=== PATIENT | female | born 1940 | race Caucasian/White ===

== ENCOUNTER → 2016-10-27 | Outpatient (CLI) | payer OTHER | LOC: BHFA 10:00 | PROVIDERS: ATTEND Internal Medicine | DX: I67.9 Cerebrovascular disease, unspecified (principal) ==

== ENCOUNTER → 2017-06-29 | Outpatient (CLI) | payer OTHER | LOC: BHFA 10:30 | PROVIDERS: ATTEND Internal Medicine Cardiovascular Disease | DX: I48.91 Unspecified atrial fibrillation (principal) ==

== ENCOUNTER 2017-08-03 11:58 | Day surgery (SDC) | payer OTHER ==
[2017-08-03] MEDS ORDERED: LIDOCAINE 1% 300 MG/30 ML SDV ONE (12:15)
[2017-08-03] MEDS ORDERED: BENZOCAINE UNIT DOSE SPRAY HURRICAINE MM ONE ×2 (12:15→13:24)
[2017-08-03] MEDS ORDERED: LIDOCAINE 2% JELLY 5 ML TUBE ONE (12:15)
[2017-08-03] MEDS ORDERED: fentaNYL 100 MCG/2 ML INJ ONE (12:19)
[2017-08-03] MEDS ORDERED: MIDAZOLAM 2 MG/2 ML VIAL ONE (12:19)
[2017-08-03 13:00] VITALS: RESP 20; TEMP 97.9
[2017-08-03] MEDS ORDERED: LIDOCAINE 1% 2 ML INJ ID PRN (13:06)
[2017-08-03] MEDS ORDERED: NS 500 ML IV ONE (13:06)
[2017-08-03] MEDS ORDERED: fentaNYL 100 MCG/2 ML INJ IVP ONE (13:37)
[2017-08-03] MEDS ORDERED: MIDAZOLAM 2 MG/2 ML VIAL IVP ONE (13:37)
[2017-08-03 13:48] VITALS: PULSE 74
--- NOTE | 2017-08-03 14:04 | BVPULMO ---
[facility]- Pulmonology Patient Name: Audra Stickling Procedure Date: 08/03/2017 11:57 AM Patient Type: Outpatient Attending MD/ER Physician: Kennedy Mares MD Procedure: Bronchoscopy Indications: Nodule of lung Providers: Kennedy Mares MD Medicines: Lidocaine 1% applied to cords 2 mL, Lidocaine 1% applied to the tracheobronchia l tree 5 mL, Fentanyl 150 mcg IV, Midazolam 3 mg mg IV Complications: No immediate complications Procedure: After informed consent, a time out was performed. N95 masks were worn, and the procedure was done in a negative pressure room. The patient was given appropria te topical anesthesia and intravenous sedation. The fiberopic bronchoscope was pas sed via a bite block orally into the larynx and subsequently into the lower trachea bronchial tree. Throughout the procedure, the patient's blood pressure, pulse, and oxygen saturations were monitored continuously. The Bronchoscope (Video) was introduced through the mouth and advanced to the tracheobronchial tree of both lungs. The procedure was accomplished without difficulty. The patient tolerated the procedure well. Findings: Bilateral Lung Abnormalities: Scant, white, thick secretions were found through out the tracheobronchial tree. They were not obstructing the airway. Bronchoalveolar lavage was performed in the BATOOL apical posterior segments (B1 & B2) and in the BATOOL anterior segment (B3) of the lung and sent for routine cytology. 100 mL of fluid were instilled. 20 mL were returned. The return was cloudy. There w ere no mucoid plugs in the return fluid. Post Op Diagnosis: - Nodule of lung - Scant, white, thick secretions were found throughout the tracheobronchial kaylie e. - Bronchoalveolar lavage was performed of the BATOOL. Estimated Blood Loss: Estimated blood loss: none. Recommendation: - The patient will be observed post-procedure, until all discharge criteria are met. - Await BAL results. - Follow up with bronchoscopist in 3 weeks. - The patient was advised to call or return to the clinic if there are signs or symptoms suggesting a complication/adverse reaction from the procedure. Attending Participation: I was present and participated during the entire procedure, including non-bob portions. Kennedy Mares MD Kennedy Mares MD 08/03/2017 2:03:11 PM This report has been signed electronicallyThmickie Mares MD Number of Addenda: 0 Note Initiated On: 08/03/2017 11:57 AM [email or web address]
[2017-08-03 14:13] VITALS: BP 132/57; O2SAT 99
== END 2017-08-03 15:00 | disposition home or self-care (01) ==
LOC: FSGY 11:58
PROVIDERS: ATTEND Internal Medicine Critical Care Medicine
PROC: 0B988ZX Drainage of Left Upper Lobe Bronchus, Via Natural or Artificial Opening Endoscopic, Diagnostic (ICD-10-PCS; principal; 2017-08-03 13:00)
DX: R91.1 Solitary pulmonary nodule (principal); J44.9 Chronic obstructive pulmonary disease, unspecified; I50.32 Chronic diastolic (congestive) heart failure; I10 Essential (primary) hypertension; G47.33 Obstructive sleep apnea (adult) (pediatric); D68.2 Hereditary deficiency of other clotting factors; Z79.01 Long term (current) use of anticoagulants; Z86.711 Personal history of pulmonary embolism
CPT/HCPCS: J0171; J2250; J3010

== ENCOUNTER → 2017-08-29 | Outpatient (CLI) | payer OTHER | LOC: BHFA 10:00 | PROVIDERS: ATTEND Internal Medicine Cardiovascular Disease | DX: R06.02 Shortness of breath (principal) ==

== ENCOUNTER 2018-06-19 06:55 | Day surgery (SDC) | payer OTHER ==
[2018-06-19] MEDS ORDERED: NALOXONE HCL 0.4 MG/ML INJ IVP PRN (07:14)
[2018-06-19] MEDS ORDERED: FLUMAZENIL 0.5 MG/5 ML MDV IVP PRN (07:14)
[2018-06-19] MEDS ORDERED: fentaNYL 100 MCG/2 ML INJ IVP PRN (07:14)
[2018-06-19] MEDS ORDERED: MEPERIDINE 25 MG/ML SYR IVP PRN (07:14)
[2018-06-19] MEDS ORDERED: MIDAZOLAM 2 MG/2 ML VIAL IVP PRN (07:14)
[2018-06-19] MEDS ORDERED: NS 1,000 ML IV SCH (07:15)
[2018-06-19 08:25] LABS: INR 1.18 (0.83-1.16); PROTIME(PATIENT) 15.2 SEC (12.0-15.0)
[2018-06-19] MEDS ORDERED: LIDOCAINE 1% 300 MG/30 ML SDV ONE (08:39)
[2018-06-19] MEDS ORDERED: NALOXONE HCL 0.4 MG/ML INJ ONE (08:46)
[2018-06-19] MEDS ORDERED: FLUMAZENIL 0.5 MG/5 ML MDV IVP ONE (08:46)
[2018-06-19] MEDS ORDERED: MIDAZOLAM 2 MG/2 ML VIAL ONE (08:47)
[2018-06-19] MEDS ORDERED: fentaNYL 100 MCG/2 ML INJ ONE (08:47)
--- NOTE | 2018-06-19 09:29 | PDPROPOC ---
Sedation Plan of Care Sedation Plan of Care: vital signs stable, mental status noted, patient educated of risks, benefits, alternatives, patient can tolerate sedation ASA Classification: ASA 2 Planned drugs: fentanyl, midazolam Mallampati Score: Class 2 Mallampati Reference Image: Patient passed 3-3-2 rule?: Yes
--- NOTE | 2018-06-19 09:31 | PDRADPRE ---
Radiology History & Physical Indication for procedure: lung nodule/mass (Enlarging BATOOL pulmonary nodule. Requested CT guided lung nodule biopsy, high risk given COPD. Discussed liklihood of chest tube placement and hospitalization with patient who agreed benefits outweigh risks.) Home medications: Albuterol [Proventil Inhaler HFA (*)] 2 puffs IH Q4 PRN 03/25/15 [Last Taken ] Methotrexate Sodium [Methotrexate] 17.5 mg PO WE@03/25/15 [Last Taken ] Multivitamins [Multivitamin (*)] 1 each PO DAILY@03/25/15 [Last Taken ] Mometasone/Formoterol [Dulera 100 Mcg/5 Mcg Inhaler] 2 puffs IH BID 11/07/15 [ Last Taken 06/19/18] ALBUTEROL SULFATE 1.25 MG/3 ML PRN 08/02/17 [Last Taken 06/19/18] Amiodarone HCl [Pacerone (*)] 100 mg PO DAILY 08/02/17 [Last Taken 06/19/18] Atorvastatin Calcium 20 mg PO HS 08/02/17 [Last Taken 06/18/18] FOLIC ACID 800 mg PO DAILY 08/02/17 [Last Taken 06/18/18] IRON 27 mg PO DAILY 08/02/17 [Last Taken 06/19/18] Losartan Potassium 50 mg PO BID 08/02/17 [Last Taken 06/18/18] Preservision Areds 2 Softgel 1 cap PO BID 08/02/17 [Last Taken 06/19/18] Isosorbide Dinitrate 0.5 tab PO BID 06/14/18 [Last Taken 06/19/18] Tiotropium Inhaler [Spiriva Handihaler] 1 cap IH DAILY 06/14/18 [Last Taken ] Allergies/Adverse Reactions: warfarin Allergy (Intermediate, Verified 10/09/15 08:19) nausea - adverse reaction levofloxacin Allergy (Verified 12/19/15 09:34) Other-Enter Comments tramadol Allergy (Verified 11/18/15 23:34) Vomiting Mental status: A&Ox3 Heart exam: regular rate and rhythm Lungs exam: other (Diminished lung sounds left greater than right) Mallampati Score: Class 2
--- NOTE | 2018-06-19 10:53 | PDRADPN ---
Radiology Procedure Note Date of Procedure: 06/19/18 Radiologist: Kennedy Borrego Anesthesia: IV Sedation Pre-op Diagnosis: BATOOL pulmonary nodule Post-op Diagnosis: BATOOL pulmonary nodule Indication: BATOOL pulmonary nodule Procedure: CT guided biopsy Finding(s): BATOOL nodule biopsy 18 ga cores. Small PTX post procedure, will continue to monitor with CXR to confirm stability vs. chest tube placement. Inf/Abcess present in the surg proc area at time of surgery?: No
[2018-06-19 13:17] VITALS: BP 143/79
== END 2018-06-19 13:48 | disposition home or self-care (01) ==
LOC: FIMAGING 06:55
PROVIDERS: ATTEND Internal Medicine Critical Care Medicine
PROC: 0BBG3ZX Excision of Left Upper Lung Lobe, Percutaneous Approach, Diagnostic (ICD-10-PCS; principal; 2018-06-19 10:24)
DX: C34.12 Malignant neoplasm of upper lobe, left bronchus or lung (principal)
CPT/HCPCS: J2250; J2310; J3010

== ENCOUNTER 2018-07-13 07:58 | Day surgery (SDC) | payer OTHER ==
[2018-07-13] MEDS ORDERED: EPINEPHrine 1 MG/ML INJ ONE (08:39)
[2018-07-13] MEDS ORDERED: LIDOCAINE 1% 300 MG/30 ML SDV ONE (08:39)
[2018-07-13] MEDS ORDERED: ALBUTEROL 3 ML DEYVIAL ONE (08:39)
[2018-07-13] MEDS ORDERED: BENZOCAINE UNIT DOSE SPRAY HURRICAINE MM ONE (08:41)
[2018-07-13] MEDS ORDERED: NS 500 ML IV ONE (08:42)
[2018-07-13] MEDS ORDERED: MIDAZOLAM 2 MG/2 ML VIAL ONE (09:30)
[2018-07-13] MEDS ORDERED: fentaNYL 100 MCG/2 ML INJ ONE (09:30)
[2018-07-13] MEDS ORDERED: fentaNYL 100 MCG/2 ML INJ IVP ONE (10:09)
[2018-07-13] MEDS ORDERED: MIDAZOLAM 2 MG/2 ML VIAL IVP ONE (10:09)
--- NOTE | 2018-07-13 10:24 | PDHPUP ---
History & Physical Update H&P update statement: This history and physical update is based on an assessment of the patient which was completed after admission or registration (within 24 hours), but prior to the surgery/procedure. H&P update: H&P reviewed & patient examined, no change in patient's condition since H&P completed
--- NOTE | 2018-07-13 10:24 | PDPROPOC ---
Sedation Plan of Care Sedation Plan of Care: vital signs stable, mental status noted, patient educated of risks, benefits, alternatives, patient can tolerate sedation ASA Classification: ASA 3 Planned drugs: fentanyl, midazolam Mallampati Score: Class 2 Mallampati Reference Image: Patient passed 3-3-2 rule?: Yes
--- NOTE | 2018-07-13 10:38 | BVPULMO ---
[facility] Surgical Services- Pulmonology Patient Name: Audra Stickling Procedure Date: 07/13/2018 8:33 AM Patient Type: Outpatient Attending MD/ER Physician: Kennedy Mares MD Procedure: Bronchoscopy Indications: Right upper lobe mass Providers: Kennedy Mares MD Medicines: Lidocaine 2% applied to cords 4 mL, Lidocaine 2% subglottic space 8 mL, Midazol am 4 mg IV, Fentanyl 150 mcg IV Complications: No immediate complications Procedure: After informed consent, a time out was performed. N95 masks were worn, and the procedure was done in a negative pressure room. The patient was given appropria te topical anesthesia and intravenous sedation. The fiberopic bronchoscope was pas sed via a bite block orally into the larynx and subsequently into the lower trachea bronchial tree. Throughout the procedure, the patient's blood pressure, pulse, and oxygen saturations were monitored continuously. The Bronchoscope (Video) was introduced through the mouth and advanced to the tracheobronchial tree of both lungs. The procedure was accomplished without difficulty. The patient tolerated the procedure fairly well. Findings: Right Lung Abnormalities: An irregular mucosal lesion was found proximally in t he anterior segment of the right upper lobe (B3), completely occluding the airway. There were scant purulent secretions at the orifice, but these were easily amanda red away. I was unable to pass a brush past it. The lesion was washed, then a cytol ogy brush was passed along it, then multiple biopsies were taken. After several bio psies were taken I was abnle to pass the forceps past the obstruction, but was unable to visualize the distal airway. Post Op Diagnosis: - Right upper lobe mass - A lesion was found in the anterior segment of the right upper lobe (B3). - Washings, brushings , and biopsies were taken. At the end of the procedure, I was able to pass forceps past the obstruction, but was unable to visualize the airw ay. . Estimated Blood Loss: Estimated blood loss was minimal. Recommendation: - Await [tests] results. Attending Participation: I was present and participated during the entire procedure, including non-bob portions. Kennedy Mares MD 07/13/2018 10:37:36 AM Number of Addenda: 0 Note Initiated On: 07/13/2018 8:33 AM [email or web address]
[2018-07-13 12:30] VITALS: BP 93/47
== END 2018-07-13 14:06 | disposition home or self-care (01) ==
LOC: FSGY 07:58
PROVIDERS: ATTEND Internal Medicine Critical Care Medicine
PROC: 0BB48ZX Excision of Right Upper Lobe Bronchus, Via Natural or Artificial Opening Endoscopic, Diagnostic (ICD-10-PCS; principal; 2018-07-13 09:30)
DX: C34.90 Malignant neoplasm of unspecified part of unspecified bronchus or lung (principal)
CPT/HCPCS: J0171; J2250; J3010; J7613

== ENCOUNTER 2018-07-26 05:45 | Inpatient (IN) | payer OTHER ==
[2018-07-26] MEDS ORDERED: LIDOCAINE 1% 2 ML INJ ID PRN (06:01)
[2018-07-26] MEDS ORDERED: ceFAZolin 2 GM/DEXTROSE 100 ML IV ONE (06:01)
[2018-07-26] MEDS ORDERED: LR 1,000 ML IV ONE (06:02)
[2018-07-26] MEDS ORDERED: BUPIVACAINE/EPI 0.25% 30 ML SDV ONE (07:01)
--- NOTE | 2018-07-26 07:12 | PDANEPAE ---
ANE Past Medical History - Cardiovascular History Hx Hypertension: Yes Hx Arrhythmias: Yes Hx Chest Pain: No Hx Coronary Artery / Peripheral Vascular Disease: Yes Hx CHF / Valvular Disease: Yes Hx Palpitations: No Cardiovascular History Comment: CHF. CAD. afib. hyperlipidemia. htn. hx of DVT. CABG x3V with Manny. followed by [facility] - Pulmonary History Hx COPD: Yes Hx Asthma/Reactive Airway Disease: Yes Hx Recent Upper Respiratory Infection: No Hx Oxygen in Use at Home: No Hx Sleep Apnea: Yes Sleep Apnea Screening Result - Last Documented: Positive Pulmonary History Comment: hx of PE. pulmonary HTN. aidee positive uses cpap- instructed pt to bring to hospital. lung ca - Neurologic History Hx Cerebrovascular Accident: No Hx Seizures: No Hx Dementia: No Neurologic History Comment: spinal stenosis. hx of spinal surgery - Endocrine History Hx Diabetes: No Obesity: no - Renal History Hx Renal Disorders: No - Liver History Hx Hepatic Disorders: No - Neurological & Psychiatric Hx Hx Neurological and Psychiatric Disorders: No - Cancer History Hx Cancer: Yes Cancer History Comment: lung ca currently - Congenital Disorder History Hx Congenital Disorders: Yes Congenital History Comment: Rheumatiod arthritis - GI History Hx Gastrointestinal Disorders: No - Other Health History Other Health History: FACTOR V LEIDAN. hx of anemia. wears bilateral hearing aides. wears glasses. upper denture plate and lower partial plate - Chronic Pain History Chronic Pain: Yes (L leg/sciatica) - Surgical History Prior Surgeries: 07/13/18 Bronch with Fluoro with Minor. 12/18/15 FITZ with Brunson. 11/07/15 CABG x3V and CONDON with Manny. 02/02/13 left elbow removal of bursa. 12/26/12 left carpal tunnel surgery. 06/06/2007 left cataract. 2006 right cataract. 02/16/2006 l4-l5 lami and fusion. 01/29/2002 right TEAGAN. 11/17/1999 right hand surgery. 12/05/1996 repair of right hand and wrist. left wrist and hand surgery. 03/20/1991 right wrist surgery ANE Review of Systems Review of Systems: - Exercise capacity METS (RN): 3 METS ANE Patient History - Allergies Allergies/Adverse Reactions: levofloxacin Allergy (Verified 07/21/18 16:17) nausea tramadol Allergy (Verified 07/13/18 09:12) Vomiting warfarin Allergy (Verified 07/21/18 16:17) nausea - adverse reaction - Home Medications Home medications: home medication list seen and reviewed Home Medications: Albuterol [Proventil Inhaler HFA (*)] 2 puffs IH Q4 PRN 03/25/15 [Last Taken ] Methotrexate Sodium [Methotrexate] 17.5 mg PO WE@03/25/15 [Last Taken ] Multivitamins [Multivitamin (*)] 1 each PO DAILY@03/25/15 [Last Taken ] Mometasone/Formoterol [Dulera 100 Mcg/5 Mcg Inhaler] 2 puffs IH BID 11/07/15 [ Last Taken 07/25/18] ALBUTEROL SULFATE 1.25 MG/3 ML PRN 08/02/17 [Last Taken 07/12/18] Amiodarone HCl [Pacerone (*)] 100 mg PO DAILY 08/02/17 [Last Taken 07/25/18] Atorvastatin Calcium 20 mg PO HS 08/02/17 [Last Taken 07/25/18] FOLIC ACID 800 mg PO DAILY 08/02/17 [Last Taken 07/25/18] IRON 27 mg PO DAILY 08/02/17 [Last Taken 07/25/18] Losartan Potassium 50 mg PO BID 08/02/17 [Last Taken 07/25/18] Preservision Areds 2 Softgel 1 cap PO BID 08/02/17 [Last Taken 07/25/18] Isosorbide Dinitrate 0.5 tab PO BID 06/14/18 [Last Taken 07/25/18] Tiotropium Inhaler [Spiriva Handihaler] 1 cap IH DAILY 06/14/18 [Last Taken ] Enoxaparin [Lovenox 60 MG (*)] 60 mg SQ DAILY 07/26/18 [Last Taken 07/25/18] - NPO status NPO Status: no food or drink >8 hours NPO Since - Liquids (Date): 07/25/18 NPO Since - Liquids (Time): 21:00 NPO Since - Solids (Date): 07/25/18 NPO Since - Solids (Time): 20:30 - Anes Hx Anes Hx: no prior problems - Smoking Hx Smoking Status: Former smoker - Family Anes Hx Family Hx Anesthesia Complications: none ANE Labs/Vital Signs - Vital Signs Blood Pressure: 159/81 Heart Rate: 90 Respiratory Rate: 14 O2 Sat (%): 92 Height: 162.56 cm Weight: 60.328 kg ANE Physical Exam - Airway Neck exam: FROM Mallampati Score: Class 2 Mouth exam: dentures - Pulmonary Pulmonary: no respiratory distress, reduced air movement - Cardiovascular Cardiovascular: regular rate and rhythym, no murmur, rub, or gallop - ASA Status ASA Status: III ANE Anesthesia Plan Anesthesia Plan: general endotracheal anesthesia, epidural Lines/Monitors: arterial line, central line Specialized Airway: double lumen tube
[2018-07-26] MEDS ORDERED: PROPOFOL 200 MG/20 ML VIAL ONE (07:25)
[2018-07-26] MEDS ORDERED: DEXAMETHASONE 4 MG/ML VIAL ONE (07:25)
[2018-07-26] MEDS ORDERED: ROCURONIUM 50 MG/5 ML VIAL ONE (07:25)
[2018-07-26] MEDS ORDERED: ONDANSETRON 4 MG/2 ML VIAL ONE (07:25)
[2018-07-26] MEDS ORDERED: MIDAZOLAM 2 MG/2 ML VIAL ONE (07:29)
[2018-07-26] MEDS ORDERED: PHENYLEPHRINE HCL 100 MCG/ML SYR ONE ×2 (07:53→08:57)
[2018-07-26] MEDS ORDERED: BUPIVACAINE 0.25% 10 ML SDV ONE (08:14)
[2018-07-26] MEDS ORDERED: ONDANSETRON 4 MG/2 ML VIAL IVP PRN ×3 (09:39→12:30)
[2018-07-26] MEDS ORDERED: NALOXONE HCL 0.4 MG/ML INJ IVP PRN ×2 (10:00→11:16)
[2018-07-26] MEDS ORDERED: diphenhydrAMINE 25 MG CAP PO PRN ×2 (10:00)
[2018-07-26] MEDS ORDERED: PHENYLEPHRINE 10 MG/ML SDV ONE (10:26)
[2018-07-26] MEDS ORDERED: THROMBIN(HUM PLAS)/FIBRINOG/CA 5 ML VIAL TP ONE (10:55)
[2018-07-26] MEDS ORDERED: PROMETHAZINE HCL 25 MG/ML INJ IVP PRN (11:16)
[2018-07-26] MEDS ORDERED: ENALAPRILAT DIHYDRATE 1.25 MG/ML VIAL IVP PRN (11:16)
[2018-07-26] MEDS ORDERED: ACETAMINOPHEN 325 MG TAB PO PRN (12:30)
[2018-07-26] MEDS ORDERED: fentaNYL 100 MCG/2 ML INJ IVP PRN (12:30)
[2018-07-26] MEDS ORDERED: MEPERIDINE 25 MG/0.5 ML AMP IVP PRN (12:30)
[2018-07-26] MEDS ORDERED: BISACODYL 10 MG SUPP PR PRN (12:30)
[2018-07-26] MEDS ORDERED: ONDANSETRON DISINTEGRATING 4 MG TAB PO PRN (12:30)
[2018-07-26] MEDS ORDERED: ACETAMINOPHEN 650 MG SUPP PR PRN (12:30)
[2018-07-26] MEDS ORDERED: METOCLOPRAMIDE 10 MG/2 ML VIAL IVP PRN (12:30)
[2018-07-26] MEDS ORDERED: MAGNESIUM HYDROXIDE 30 ML UDCUP PO PRN (12:30)
[2018-07-26] MEDS ORDERED: niCARdipine/NACL 200 ML IV SCH (12:30)
[2018-07-26] MEDS ORDERED: LACTULOSE 20 GM/30 ML UDCUP PO PRN (12:30)
[2018-07-26] MEDS ORDERED: POLYETHYLENE GLYCOL 3350 17 GM PKT PO PRN (12:30)
[2018-07-26] MEDS ORDERED: fentaNYL 100 MCG/2 ML INJ ONE (12:45)
--- NOTE | 2018-07-26 12:47 | PDMN ---
Medical Necessity Medical necessity: Pt meets IP criteria as of 07/26/2018 per and [facility] S-1080 ( Thoracotomy with biopsy); los > 2 mn for post op care s/p BATOOL thoracotomy d/t adenocarcinoma.
--- NOTE | 2018-07-26 13:01 | POSTANESTH ---
Post Anesthetic Evaluation Cardiovascular Status: Normal, Stable, Similar to Pre-Op Cond Respiratory Status: Similar to Pre-op Cond. Level of Consciousness/Mental Status: Can Participate in Eval, Moderately Sleepy Pain Control: Adequate, Prn Tx Ordered (She reports moderate pain but appears comfortable and dozes when not stimulated.) Nausea/Vomiting Control: Adequate, Prn Tx Ordered Complications Possibly Related to Anesthesia: None Noted
[2018-07-26] MEDS: fentaNYL 100 MCG/2 ML INJ IVP PRN ×2 (13:09→13:49)
--- NOTE | 2018-07-26 13:10 | GOP ---
DATE OF OPERATION: 07/26/2018 SURGEON: Manish Bryant DO ABRASIVE WORKER: Kurtis Taylor PA-C. ANESTHESIA: Demetrius Moncada MD. PREOPERATIVE DIAGNOSIS: 1. Adenocarcinoma of the left upper lobe. 2. Chronic obstructive pulmonary disease. 3. Coronary artery disease status post coronary bypass grafting with left internal mammary artery to the left anterior descending. POSTOPERATIVE DIAGNOSIS: 1. Adenocarcinoma of the left upper lobe. 2. Chronic obstructive pulmonary disease. 3. Coronary artery disease status post coronary bypass grafting with left internal mammary artery to the left anterior descending. PROCEDURE PERFORMED: Left thoracotomy with left upper lobectomy. FINDINGS: Patient presented with an enlarging mass in the left upper lobe which on biopsy was an tania nocarcinoma. 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 The plan was to stage resect and then subsequently endobronchially treat the right upper lobe squamo us. She was consented for surgery, brought to the operating room, intubated with a double-lumen endo tracheal tube. A radial arterial line was placed as well as a Hester and a triple-lumen central line. She was placed in the lateral decubitus position. A 4th intercostal space muscle-sparing thoracoto my was performed. A retractor was placed. There were adhesions throughout the chest wall, which too k some time to take down with Bovie because they were particularly bloody. We identified the mammary coming down off the apex and adhering to the medial side of the lung. We took a great deal of time carefully dissecting that off the lung, preserving it without injury or retraction. We were unable t o free up the lung. We then tried to develop an interlobar fissure gently because her lung tissues w ere quite friable and very vascular. The initial plan was to try to minimally resect her with just a wedge. However, the mass was pretty deeply intra parenchymal. Because of the deep intraparenchymal nature and because of the friability of the lung and concern for persistent air leak and bronchopleur al fistula, I decided to go ahead and proceed with a lobectomy. The interlobar fissure was developed with ashlee. The individual arterial branches to the upper lobe were ligated and doubly clipped pr oximally. The superior pulmonary vein was stapled after identifying the inferior pulmonary vein. We identified the bifurcation of the bronchus and stapled the bronchus and tested it under pressure w ithout evidence of air leak. There were multiple punctate areas of high-volume air leak from the low er lobe interlobar fissure area which were gently closed with 4-0 Prolenes reinforced with felt. I a lso placed bio glue across the surface of that lung in order to try to control any air leak. Two saida st tubes were placed. The inferior pulmonary ligament was developed. Multiple hilar and regional ly mph nodes were excised and sent to Pathology. Chest was closed in standard fashion. The patient was returned to ICU in stable condition. DESCRIPTION OF PROCEDURE: /[id number]/MODL
[2018-07-26] MEDS: ceFAZolin 2 GM/DEXTROSE 100 ML IV SCH ×2 (14:46→22:04)
--- NOTE | 2018-07-26 15:40 | PDCONSULT ---
Shift Supervisor Note: ASSESSMENT 78 yo F with BATOOL pulmonary adenocarcinoma clinical stage IA3 ([id number]) s/p BATOOL resection. Will need to follow up formal pathology for staging. Assuming this is true pathologic stage will need post surveillance follow-up with serial CTs # primary left upper lobe pulmonary adenocarcinoma clinical stage IA3 ([id number]) # COPD moderate to severe # coronary disease status post prior CABG # CHF # hyperlipidemia # history of tobacco dependence # advanced age # history of DVT PE # rheumatoid arthritis # atrial fibrillation PLAN # chest tube to negative suction # restart inhalers when able # continue rate control # Restart anticoagulation when able # hold methotrexate in the setting of immediate postoperative care # Feeding - advanced as tolerated # Analgesia pain control per CT surgery # Sedation none # Thromboprophylaxis - SQ hep # Head of bed elevated # Ulcer prophylaxis - PPI # Glucose SSI # Skin no skin breakdown # Delirium - delirium precautions CONSULT I was asked by Dr. Armendariz and of cardiothoracic surgery to evaluate this patient for postoperative ICU care in the setting of thoracotomy and lobar resection for lung cancer. Chief complaint Cough HPI Patient is in 78-year-old white female who has a longstanding smoking history as well as COPD. She has biopsy-proven left upper lobe well-differentiated adenocarcinoma. A CT PET from June 2018 she had PET avid uptake in this nodule and no other PET avidity. She denies fevers chills nausea vomiting, worsening weight loss, syncope, however cold intolerance, depression Allergies Low Floxin, tramadol, warfarin Past medical history CHF, coronary disease with bypass grafting, carotid arterial disease, moderate COPD, chronic lower extremity edema, history of DVT and factor 5 Leiden mutation , mi, RELL, PE, RA Social history Lives in [facility], extensive smoking history. Quit April 2018 Family history Lung cancer Review of systems A comprehensive 10 point review of systems was obtained is negative except as per HPI Physical exam Vitals GEN: NAD, up in chair, interactive NEURO: A&Ox3, CN 2-12 GI HEENT: PERRL, EOMI, MMM, OP clear NECK: supple, trachea midline CHEST normal shape, no pes excavatum CVS: rrr no m/r/g PULM: CTA B, no wheezes/rales/rhonchi ABD: soft, NT, ND, NABS EXT: no swelling, no cyanosis, full ROM SKIN: warm, dry, intact, no rash PSYCH CAM negative, appropriate affect Data reviewed I personally reviewed interpreted patient's radiographic imaging as well forma radiology reads Significant for PET-CT with a 2.3 x 1.4 cm spiculated biopsy lesion in the superior aspect of the left upper lobe. 07/26/2018 chest x-ray but expected postoperative changes with left-sided chest tube in appropriate position. Small left apical pneumothorax
--- NOTE | 2018-07-26 17:44 | ASMTCMCOM ---
CM Note CM Note Notes: 78yo female admitted for lung CA. She has a Hx of CABG x 3, COPD, Anemia, CHF, Afib, Chronic anticoagulation, RELL-Cpap, Former smoker. She had her BATOOL resection. Therapies to eval for discharge needs. CM to follow. Date Signed: 07/26/2018 05:44 PM Electronically Signed By:Shanti Farmer LCSW
--- NOTE | 2018-07-26 17:47 | ASMTLACE ---
LACE Acuity / Level of Answers: Yes Care: Did the patient have an inpatient admission? Comorbidities - select Answers: Any tumor (including all that apply lymphoma or leukemia) Chronic pulmonary disease Congestive heart failure Coronary Artery Disease Other Notes: Chronic anticoagulation, RELL, A nem ia, # of Emergency department Answers: 0 visits in the last 6 months Score: 12 Date Signed: 07/26/2018 05:47 PM Electronically Signed By:Shanti Farmer LCSW
[2018-07-26] MEDS: FLUTICASONE/SALMETER 250/50MCG DISKUS IH SCH (20:13)
[2018-07-26] MEDS ORDERED: Mometasone/Formoterol [Dulera 100 Mcg/5 Mcg Inhaler] IH SCH (21:00)
[2018-07-26] MEDS: SENNOSIDES/DOCUSATE SODIUM TAB PO SCH (22:57)
[2018-07-26] MEDS: MUPIROCIN 2% 22 GM OINT NS SCH (22:57)
[2018-07-27] MEDS: HYDROmorph 10MCG/ML&BUP 0.0625% in 100ML NS EP SCH ×2 (00:20→16:45)
[2018-07-27 05:19] LABS: PLATELET COUNT 196 10^3/uL (150-400)
[2018-07-27] MEDS ORDERED: HEPARIN 5,000 UNIT/0.5 ML INJ SC SCH (06:00)
--- NOTE | 2018-07-27 06:26 | SOAPPROG ---
SOAP Progress Note Assessment/Plan: Assessment: POD#1 Left thoracotomy with upper lobectomy and LN sampling Adenocarcinoma of left upper lobe - Limited resection curtailed by adhesions and upper lobectomy with LN sampling undertaken. Await path for staging. Small volume loss by CXR without significant air leak. Excellent pain control with epidural catheter. Acute expected blood loss anemia - Stable. No transfusions needed. 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 O2 dep COPD/RELL - Stable. Extubated without incident. CPAP and chronic MDIs resumed. 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 Anticoag to resume once epidural out. AF prophylaxis with amio and CCB when appropriate. Stable CAD - s/p CABG and LCX HIRAM in 2016. Secondary prevention w baby ASA and statin when appropriate. Rheumatoid arthritis - Controlled on Methotrexate. To resume prior to discharge. Plan: Lighten epidural. Consider removal tomorrow. Mobilize. Resume baby ASA if ok w anesthesia. Resume amiodarone. Tx to PCU 07/27/18 06:22 Subjective: Shakey upright. No pain whatsoever. Objective: Vital Signs Temp Pulse Resp BP Pulse Ox 36.2 C 83 16 104/51 L 96 07/26/18 14:04 07/27/18 04:00 07/27/18 04:00 07/27/18 04:00 07/27/18 04:00 Laboratory Results 07/27/18 05:10 07/27/18 05:10 07/26/18 07/27/18 07/28/18 05:59 05:59 05:59 Intake Total 2976 Output Total 1763 Balance 1213 HR controlled. SBPs marginal. Orthostatic standing. Min suppl O2. CXR -> no overt left PTX, no undrained effusion, no pulm vasc congestion. CTOP thin. Labs as expected. Physical Exam - Physical Exam General Appearance: alert, no apparent distress Respiratory: lungs clear (rt side), other (Tube noise left side. CTs x 2 to individual pleurovacs, serosang drainage, +tidal, small inducible air leaks) Cardiac/Chest: regular rate, rhythm Abdomen: non-tender, soft Skin: warm/dry Extremities: other (no visible edema) ICD10 Worksheet Patient Problems: Problems Problem Status Onset Adenocarcinoma of left lung Acute Chronic Disease Mgmt/Transitional Care Acute CAD, multiple vessel Chronic Cerebral vascular disease Chronic Chronic anticoagulation Chronic Rheumatoid arthritis Chronic S/P CABG x 3 Chronic
[2018-07-27] MEDS: ISOSORBIDE DINITRATE 10 MG TAB PO SCH ×2 (07:47→16:22)
[2018-07-27] MEDS: ceFAZolin 2 GM/DEXTROSE 100 ML IV SCH ×3 (07:47→23:23)
--- NOTE | 2018-07-27 09:42 | PDPAINCON ---
Pain Management Consultation Patient referred by : Manny - Subjective Pain at rest (/10): 0 Pain with activity (/10): 3 Pain is: low, well controlled Side effects include: drowsy Activity: out of bed with assistance - Objective Technique: continuous epidural Continuous infusion: bupivicaine Continuous rate (ml/hr): 5 Catheter site: clean, dry, intact, no erythema/edema/exudate Sensory and motor exam: consistent with block - Assessment/Plan Assessment/Plan: pain well-controlled, continue current mgmt (Pt. reports good pain control. Increased pain to 3/10 with deep breathing.)
[2018-07-27] MEDS: DC NARCS MISC SCH (10:56)
[2018-07-27] MEDS: REGARDING ANTICOAG MISC SCH (10:56)
[2018-07-27] MEDS: MUPIROCIN 2% 22 GM OINT NS SCH (11:09)
[2018-07-27] MEDS: TIOTROPIUM INHALER 18 MCG/DOSE 5 DOSE/MDI IH SCH (11:11)
[2018-07-27] MEDS: FLUTICASONE/SALMETER 250/50MCG DISKUS IH SCH ×2 (11:12→22:29)
[2018-07-27] MEDS: AMIODARONE HCL 200 MG TAB PO SCH (11:12)
[2018-07-27] MEDS: ASPIRIN 81 MG CHEWABLE TAB PO SCH (11:12)
[2018-07-27] MEDS: MULTIVITAMINS 1 EACH TAB PO SCH (11:13)
[2018-07-27] MEDS: SENNOSIDES/DOCUSATE SODIUM TAB PO SCH ×2 (11:24→22:47)
--- NOTE | 2018-07-27 14:35 | ASMTCMCOM ---
CM Note CM Note Notes: Patient interested in SNF rehab. She would like referrals to be sent to [facility]. Referrals have been sent to those facilities. Date Signed: 07/27/2018 02:34 PM Electronically Signed By:Shanti Farmer LCSW
[2018-07-27] MEDS: ATORVASTATIN CALCIUM 20 MG TAB PO SCH (22:47)
[2018-07-27] MEDS: PRESERVISION AREDS2 FORMULA EYE VIT 1 EACH PO SCH (22:47)
[2018-07-28] MEDS: MUPIROCIN 2% 22 GM OINT NS SCH ×2 (01:10→11:19)
[2018-07-28] MEDS: ISOSORBIDE DINITRATE 10 MG TAB PO SCH ×2 (06:05→16:43)
--- NOTE | 2018-07-28 07:12 | SOAPPROG ---
SOAP Progress Note Assessment/Plan: Assessment: POD#2 Left thoracotomy with upper lobectomy and LN sampling Adenocarcinoma of left upper lobe - Limited resection curtailed by adhesions and upper lobectomy with LN sampling undertaken. Await path for staging. Small volume loss by CXR without significant air leak. Excellent pain control with epidural catheter. Acute expected blood loss anemia - Stable. No transfusions needed. 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 COPD/RELL - Stable. Extubated without incident. CPAP and chronic MDIs resumed. 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 Anticoag to resume once epidural out. AF prophylaxis with amio and CCB when appropriate. Stable CAD - s/p CABG and LCX HIRAM in 2016. Secondary prevention w baby ASA and statin. Rheumatoid arthritis - Controlled on Methotrexate. To resume at discharge. Plan: Anesthesia to remove epidural. Pleurovac #2 to water seal. Cont inc activity as tolerated. Resume Cardizem with conservative hold parameters. Dispo - SNF rehab once CTs out. 07/28/18 07:11 Subjective: Better each day. Short walks yest without dizziness. Knees still feel like they want to buckle. Objective: Vital Signs Temp Pulse Resp BP Pulse Ox 37.3 C 96 17 107/51 L 93 07/28/18 03:50 07/28/18 03:50 07/28/18 03:50 07/28/18 06:05 07/28/18 03:50 Laboratory Results 07/27/18 05:10 07/27/18 05:10 07/27/18 07/28/18 07/29/18 05:59 05:59 05:59 Intake Total 2976 1580 150 Output Total 1763 955 480 Balance 1213 625 -330 Resting tachycardia. SBPs > 100. Stable 2-3 lpm suppl O2 need. CTOP dissipating. Physical Exam - Physical Exam General Appearance: alert, no apparent distress Respiratory: lungs clear (rt side), other (Coarse left sided BS. CTs x 2 to pleurovacs. No inducible air leak pleurovac 2, small air leak pleurovac 1) Cardiac/Chest: regular rate, rhythm, other (left thoracotomy CDI) Abdomen: soft Skin: warm/dry Extremities: other (no visible edema) ICD10 Worksheet Patient Problems: Problems Problem Status Onset Adenocarcinoma of left lung Acute Chronic Disease Mgmt/Transitional Care Acute CAD, multiple vessel Chronic Cerebral vascular disease Chronic Chronic anticoagulation Chronic Rheumatoid arthritis Chronic S/P CABG x 3 Chronic
[2018-07-28] MEDS: ASPIRIN 81 MG CHEWABLE TAB PO SCH (09:32)
[2018-07-28] MEDS: DILTIAZEM CD 120 MG CAP PO SCH ×2 (09:32→17:07)
[2018-07-28] MEDS: SENNOSIDES/DOCUSATE SODIUM TAB PO SCH ×2 (09:32→20:05)
[2018-07-28] MEDS: AMIODARONE HCL 200 MG TAB PO SCH (09:33)
[2018-07-28] MEDS: PRESERVISION AREDS2 FORMULA EYE VIT 1 EACH PO SCH ×2 (09:33→20:05)
[2018-07-28] MEDS: HYDROmorph 10MCG/ML&BUP 0.0625% in 100ML NS EP SCH ×2 (09:36→13:20)
[2018-07-28] MEDS: TIOTROPIUM INHALER 18 MCG/DOSE 5 DOSE/MDI IH SCH (09:53)
[2018-07-28] MEDS: FLUTICASONE/SALMETER 250/50MCG DISKUS IH SCH ×2 (09:53→20:38)
[2018-07-28] MEDS: DC NARCS MISC SCH (11:18)
[2018-07-28] MEDS: REGARDING ANTICOAG MISC SCH (11:18)
[2018-07-28] MEDS: MULTIVITAMINS 1 EACH TAB PO SCH (13:19)
[2018-07-28] MEDS: ALBUTEROL 60 PUFFS/8 GM MDI IH PRN (15:24)
--- NOTE | 2018-07-28 18:52 | PDPAINCON ---
Pain Management Consultation Patient referred by : Manny - Subjective Pain at rest (/10): 0 Pain with activity (/10): 1 Pain is: low, well controlled Activity: out of bed with assistance - Objective Technique: continuous epidural Continuous infusion: bupivicaine Catheter site: clean, dry, intact, no erythema/edema/exudate Sensory and motor exam: consistent with block - Assessment/Plan Assessment/Plan: pain well-controlled, continue current mgmt (Will decrease infusion to 4 ml/hr in am, d/c epidural after chest tube is removed.)
[2018-07-28] MEDS: ATORVASTATIN CALCIUM 20 MG TAB PO SCH (20:05)
--- NOTE | 2018-07-29 07:56 | SOAPPROG ---
SOAP Progress Note Assessment/Plan: Assessment: POD#3 Left thoracotomy with upper lobectomy and LN sampling Adenocarcinoma of left upper lobe - Limited resection curtailed by adhesions and upper lobectomy with LN sampling undertaken. Pathologic stage returned as T1bN1 as 1 of 9 LNs involved. Small volume loss by CXR without significant air leak. Posterior chest tube out. Excellent pain control with epidural catheter. Acute expected blood loss anemia - Stable. No transfusions needed. VTE prophylaxis with Xarelto once epidural out. 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 COPD/RELL - Stable. Extubated without incident. CPAP and chronic MDIs resumed. 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 Anticoag to resume once epidural out. AF prophylaxis with amio and CCB. Stable CAD - s/p CABG and LCX HIRAM in 2016. Secondary prevention w baby ASA and statin. Rheumatoid arthritis - Controlled on Methotrexate. To resume at discharge. Plan: Anesthesia to remove epidural. Maintain continuous suction on remaining chest tube. Cont inc activity as tolerated. Dispo - SNF rehab once CTs out. 07/29/18 07:51 Subjective: Comfortable. Expectorating phlegm with coughing. Voiding better. Objective: Vital Signs Temp Pulse Resp BP Pulse Ox 36.9 C 84 20 101/50 L 94 07/29/18 04:00 07/29/18 04:00 07/29/18 04:00 07/29/18 04:00 07/29/18 04:00 Laboratory Results 07/27/18 05:10 07/27/18 05:10 07/28/18 07/29/18 07/30/18 05:59 05:59 05:59 Intake Total 1580 790 Output Total 955 1855 Balance 625 -1065 Holding SR SBPs > 100 Stable sats on 2lpm Autodiuresing well CTOP as expected given removal of one chest tube Physical Exam - Physical Exam General Appearance: alert, no apparent distress Respiratory: other (Coarse left sided BS; CT to pleurovac, serosang drainage, no air leak with nl tidal; Post CT site moist; Left thoracot CDI.) Cardiac/Chest: regular rate, rhythm Abdomen: non-tender, soft Skin: warm/dry Extremities: other (no visible edema) ICD10 Worksheet Patient Problems: Problems Problem Status Onset Adenocarcinoma of left lung Acute Chronic Disease Mgmt/Transitional Care Acute CAD, multiple vessel Chronic Cerebral vascular disease Chronic Chronic anticoagulation Chronic Rheumatoid arthritis Chronic S/P CABG x 3 Chronic
[2018-07-29] MEDS: AMIODARONE HCL 200 MG TAB PO SCH (08:19)
[2018-07-29] MEDS: ASPIRIN 81 MG CHEWABLE TAB PO SCH (08:19)
[2018-07-29] MEDS: DILTIAZEM CD 120 MG CAP PO SCH ×2 (08:19→17:39)
[2018-07-29] MEDS: SENNOSIDES/DOCUSATE SODIUM TAB PO SCH ×2 (08:20→20:14)
[2018-07-29] MEDS: PRESERVISION AREDS2 FORMULA EYE VIT 1 EACH PO SCH ×2 (08:21→20:14)
[2018-07-29] MEDS: DC NARCS MISC SCH (08:28)
[2018-07-29] MEDS: REGARDING ANTICOAG MISC SCH (08:28)
--- NOTE | 2018-07-29 08:42 | PDPAINCON ---
Pain Management Consultation Patient referred by : rashad - Subjective Pain at rest (/10): 0 Pain with activity (/10): 0 Pain is: no pain at all Activity: out of bed with assistance - Objective Technique: continuous epidural Site: thoracic Continuous infusion: bupivicaine Catheter site: clean, dry, intact Sensory and motor exam: consistent with block Vital signs: other (Surgical team requests removal of catheter for anti- coagulation, pt's nurse also reports some difficulty with urination: Epidural catheter removed easily with intact tip. Patient has PO analgesia orders, discussed with patient who agrees to proceed.)
[2018-07-29] MEDS: TIOTROPIUM INHALER 18 MCG/DOSE 5 DOSE/MDI IH SCH (08:44)
[2018-07-29] MEDS: FLUTICASONE/SALMETER 250/50MCG DISKUS IH SCH ×2 (08:44→22:10)
[2018-07-29] MEDS: MULTIVITAMINS 1 EACH TAB PO SCH (12:17)
[2018-07-29] MEDS: HYDROCODONE/APAP 5/325 TAB PO PRN ×2 (14:21→22:24)
[2018-07-29] MEDS: RIVAROXABAN 20 MG TAB PO SCH (17:39)
[2018-07-29] MEDS: ATORVASTATIN CALCIUM 20 MG TAB PO SCH (20:14)
[2018-07-30] MEDS: ASPIRIN 81 MG CHEWABLE TAB PO SCH (08:23)
[2018-07-30] MEDS: AMIODARONE HCL 200 MG TAB PO SCH (08:24)
[2018-07-30] MEDS: DILTIAZEM CD 120 MG CAP PO SCH ×2 (08:24→17:53)
[2018-07-30] MEDS: PRESERVISION AREDS2 FORMULA EYE VIT 1 EACH PO SCH ×2 (08:24→20:10)
[2018-07-30] MEDS: SENNOSIDES/DOCUSATE SODIUM TAB PO SCH ×2 (08:29→20:10)
--- NOTE | 2018-07-30 08:40 | SOAPPROG ---
SOAP Progress Note Assessment/Plan: Assessment: POD#4 Left thoracotomy with upper lobectomy and LN sampling Adenocarcinoma of left upper lobe - Limited resection curtailed by adhesions and upper lobectomy with LN sampling undertaken. Pathologic stage returned as T1bN1 as 1 of 9 LNs involved. Small volume loss by CXR without significant air leak. Posterior chest tube and epidural out. Anterior chest tube remains on suction. F/u with oncology ([facility]) already scheduled. Acute expected blood loss anemia - Stable. No transfusions needed. VTE prophylaxis with Xarelto. 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 COPD/RELL - Stable. Extubated without incident. CPAP and chronic MDIs resumed. 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 Anticoag resumed yest. AF prophylaxis w amio and CCB. Stable CAD - s/p CABG and LCX HIRAM in 2016. Secondary prevention w baby ASA and statin. Rheumatoid arthritis - Controlled on Methotrexate. To resume at discharge. Plan: Adjust analgesia: stop [place], sandra tylenol, add toradol, breakthrough oxy Cont pleurovac to suction. Cont inc activity as tolerated. Switch to peripheral IV tomorrow. Dispo - SNF rehab once CT out. 07/30/18 08:33 Subjective: Remains in good spirits. High pain tolerance and no real drop off in comfort after epidural out. Some nausea on [place] and would just as soon avoid. Improving ambulatory capacity. +BM. Objective: Vital Signs Temp Pulse Resp BP Pulse Ox 36.9 C 97 19 128/56 H 92 07/30/18 07:12 07/30/18 07:12 07/30/18 07:12 07/30/18 07:12 07/30/18 07:12 Laboratory Results 07/30/18 05:35 07/30/18 05:35 07/29/18 07/30/18 07/31/18 05:59 05:59 05:59 Intake Total 790 750 Output Total 1855 3130 450 Balance -1065 -2380 -450 Cardioresp status stable. CXR -> essentially unchanged, small volume loss, no inc effusion or atelectasis. CTOP decreasing. Air leak appears to be resolving. Physical Exam - Physical Exam General Appearance: alert, no apparent distress Respiratory: lungs clear (rt sided), other (coarse left sided BS, CT to pleurovac, thin serosang drainage, no air leak with nl tidal, small air leak with valsalva) Cardiac/Chest: regular rate, rhythm, other (left thoracotomy CDI) Abdomen: non-tender, soft Skin: warm/dry Extremities: other (no visible edema) ICD10 Worksheet Patient Problems: Problems Problem Status Onset Adenocarcinoma of left lung Acute Chronic Disease Mgmt/Transitional Care Acute CAD, multiple vessel Chronic Cerebral vascular disease Chronic Chronic anticoagulation Chronic Rheumatoid arthritis Chronic S/P CABG x 3 Chronic
[2018-07-30] MEDS: FLUTICASONE/SALMETER 250/50MCG DISKUS IH SCH ×2 (09:05→22:06)
[2018-07-30] MEDS: TIOTROPIUM INHALER 18 MCG/DOSE 5 DOSE/MDI IH SCH (09:06)
[2018-07-30] MEDS: ACETAMINOPHEN 325 MG TAB PO SCH ×2 (10:02→17:53)
[2018-07-30] MEDS: MULTIVITAMINS 1 EACH TAB PO SCH (13:12)
[2018-07-30] MEDS: RIVAROXABAN 20 MG TAB PO SCH (17:53)
[2018-07-30] MEDS: ATORVASTATIN CALCIUM 20 MG TAB PO SCH (20:10)
[2018-07-30] MEDS: KETOROLAC 15 MG/1 ML SDV IVP PRN (20:10)
[2018-07-31] MEDS: ACETAMINOPHEN 325 MG TAB PO SCH ×4 (00:10→17:24)
[2018-07-31] MEDS: SENNOSIDES/DOCUSATE SODIUM TAB PO SCH ×3 (08:10→22:09)
[2018-07-31] MEDS: ASPIRIN 81 MG CHEWABLE TAB PO SCH (08:10)
[2018-07-31] MEDS: DILTIAZEM CD 120 MG CAP PO SCH ×2 (08:10→17:13)
[2018-07-31] MEDS: PRESERVISION AREDS2 FORMULA EYE VIT 1 EACH PO SCH ×2 (08:11→22:09)
[2018-07-31] MEDS: AMIODARONE HCL 200 MG TAB PO SCH (08:11)
--- NOTE | 2018-07-31 08:54 | SOAPPROG ---
SOAP Progress Note Assessment/Plan: Assessment: POD#5 Left thoracotomy with upper lobectomy and LN sampling Adenocarcinoma of left upper lobe - Limited resection curtailed by adhesions and upper lobectomy with LN sampling undertaken. Pathologic stage returned as T1bN1 as 1 of 9 LNs involved. Posterior chest tube and epidural out. Anterior chest tube remains on suction. F/u with oncology ([facility]) already scheduled. Slight increase in apical ptx after changing suction from -20 to -10. Placed back on -20. Acute expected blood loss anemia - Stable. No transfusions needed. VTE prophylaxis with Xarelto. 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 COPD/RELL - Stable. Extubated without incident. CPAP and chronic MDIs resumed. 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 Anticoag resumed. AF prophylaxis w amio and CCB. Stable CAD - s/p CABG and LCX HIRAM in 2016. Secondary prevention w baby ASA and statin. Rheumatoid arthritis - Controlled on Methotrexate. To resume at discharge. HTN - will restart home Imdur as Bp as high as 160. Continue to hold Cozaar until appropriate. Plan: Restart home Imdur Cont pleurovac to suction @ -20 Repeat CXR tomorrow D/c CVL and change to PIV Dispo - SNF rehab Subjective: Feels off today. Appetite poor. Objective: Vital Signs Temp Pulse Resp BP Pulse Ox 36.8 C 94 14 159/73 H 95 07/31/18 07:03 07/31/18 07:03 07/31/18 07:03 07/31/18 07:03 07/31/18 07:03 Laboratory Results 07/30/18 05:35 07/30/18 05:35 07/30/18 07/31/18 08/01/18 05:59 05:59 05:59 Intake Total 750 700 Output Total 3130 2080 Balance -2380 -1380 - Physical Exam General Appearance: alert, no apparent distress Respiratory: lungs clear (rt sided), other (coarse left sided BS, CT to pleurovac, thin serosang drainage, mild air leak with valsalva/cough) Cardiac/Chest: regular rate, rhythm, other (left thoracotomy CDI) Abdomen: non-tender, soft Skin: warm/dry Extremities: other (no visible edema) ICD10 Worksheet Patient Problems: Problems Problem Status Onset Adenocarcinoma of left lung Acute Chronic Disease Mgmt/Transitional Care Acute CAD, multiple vessel Chronic Cerebral vascular disease Chronic Chronic anticoagulation Chronic Rheumatoid arthritis Chronic S/P CABG x 3 Chronic
[2018-07-31] MEDS: FLUTICASONE/SALMETER 250/50MCG DISKUS IH SCH ×2 (09:06→20:17)
[2018-07-31] MEDS: TIOTROPIUM INHALER 18 MCG/DOSE 5 DOSE/MDI IH SCH (09:07)
[2018-07-31] MEDS: oxyCODONE IR 5 MG TAB PO PRN ×3 (09:25→13:49)
[2018-07-31] MEDS: KETOROLAC 15 MG/1 ML SDV IVP PRN ×2 (11:23→22:18)
--- NOTE | 2018-07-31 11:31 | ASMTCMCOM ---
CM Note CM Note Notes: Patient has a prolonged airleak and will have a bedside pleurodesis tomorrow AM. Repeat CXR tomorrow. To SNF pending CT removal. Current CM Discharge plan: [facility] Date Signed: 07/31/2018 11:30 AM Electronically Signed By:Lo Witt RN
[2018-07-31] MEDS: MULTIVITAMINS 1 EACH TAB PO SCH (11:46)
[2018-07-31] MEDS: ISOSORBIDE DINITRATE 10 MG TAB PO SCH ×2 (11:51→16:18)
[2018-07-31] MEDS: RIVAROXABAN 20 MG TAB PO SCH (17:13)
[2018-07-31] MEDS: ATORVASTATIN CALCIUM 20 MG TAB PO SCH (22:09)
[2018-08-01] MEDS: ACETAMINOPHEN 325 MG TAB PO SCH ×5 (02:12→17:56)
[2018-08-01] MEDS: ISOSORBIDE DINITRATE 10 MG TAB PO SCH ×2 (06:00→14:53)
[2018-08-01] MEDS: oxyCODONE IR 5 MG TAB PO PRN ×4 (07:06→22:11)
[2018-08-01] MEDS ORDERED: CYCLOBENZAPRINE 10 MG TAB PO PRN (08:15)
--- NOTE | 2018-08-01 08:15 | SOAPPROG ---
SOAP Progress Note Assessment/Plan: Assessment: POD#6 Left thoracotomy with upper lobectomy and LN sampling Adenocarcinoma of left upper lobe - Limited resection curtailed by adhesions and upper lobectomy with LN sampling undertaken. Pathologic stage returned as T1bN1 as 1 of 9 LNs involved. Posterior chest tube and epidural out. Anterior chest tube remains on suction. F/u with oncology ([facility]) scheduled. Slight increase in apical ptx after changing suction from -20 to -10. Placed back on - 20. CXR today appears to have no change in apical ptx. Airleak appears improved. Acute expected blood loss anemia - Stable. No transfusions needed. VTE prophylaxis with Xarelto. 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 COPD/RELL - Stable. Extubated without incident. CPAP and chronic MDIs resumed. Consistently on 3 L. Will require oxygen at SNF. 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 Anticoag resumed. AF prophylaxis w amio and CCB. Stable CAD - s/p CABG and LCX HIRAM in 2015. Secondary prevention w baby ASA and statin. Rheumatoid arthritis - Controlled on Methotrexate. To resume at discharge. HTN - Home Imdur. Hold Cozaar until appropriate. Deconditioning - PTOT, encourage PO intake Plan: Plan for bedside talc pleurodesis today Repeat CXR tomorrow Titrate oxycodone from 2.5-5 to 5-7.5 Add PRN muscle relaxant Continue scheduled tylenol Dispo - SNF rehab Subjective: Continues to have constant left sided pain after becoming increasing active. States that the oxycodone helps the best. Appetite still poor but slowly improving. Objective: Vital Signs Temp Pulse Resp BP Pulse Ox 36.6 C 103 H 20 122/60 H 95 08/01/18 07:04 08/01/18 07:15 08/01/18 07:04 08/01/18 07:15 08/01/18 07:04 Laboratory Results 07/30/18 05:35 07/30/18 05:35 07/31/18 08/01/18 08/02/18 05:59 05:59 05:59 Intake Total 700 600 Output Total 2080 1040 160 Balance -1380 -440 -160 - Physical Exam General Appearance: alert, no apparent distress Respiratory: lungs clear (rt sided), other (coarse left sided BS, CT to pleurovac, thin serosang drainage, mild air leak with valsalva/cough) Cardiac/Chest: regular rate, rhythm, other (left thoracotomy CDI, some chest wall discomfort) Abdomen: non-tender, soft Skin: warm/dry Extremities: other (no visible edema) ICD10 Worksheet Patient Problems: Problems Problem Status Onset Adenocarcinoma of left lung Acute Chronic Disease Mgmt/Transitional Care Acute CAD, multiple vessel Chronic Cerebral vascular disease Chronic Chronic anticoagulation Chronic Rheumatoid arthritis Chronic S/P CABG x 3 Chronic
[2018-08-01] MEDS ORDERED: NS IPL ONE (09:00)
[2018-08-01] MEDS ORDERED: TALC IPL ONE (09:00)
[2018-08-01] MEDS: FLUTICASONE/SALMETER 250/50MCG DISKUS IH SCH ×2 (09:05→20:28)
[2018-08-01] MEDS: TIOTROPIUM INHALER 18 MCG/DOSE 5 DOSE/MDI IH SCH (09:06)
[2018-08-01] MEDS: SENNOSIDES/DOCUSATE SODIUM TAB PO SCH ×2 (09:35→22:12)
[2018-08-01] MEDS: AMIODARONE HCL 200 MG TAB PO SCH (09:35)
[2018-08-01] MEDS: DILTIAZEM CD 120 MG CAP PO SCH ×2 (09:35→17:56)
[2018-08-01] MEDS: PRESERVISION AREDS2 FORMULA EYE VIT 1 EACH PO SCH ×2 (09:35→22:12)
[2018-08-01] MEDS: ASPIRIN 81 MG CHEWABLE TAB PO SCH (09:35)
[2018-08-01] MEDS: MULTIVITAMINS 1 EACH TAB PO SCH (11:18)
[2018-08-01] MEDS: RIVAROXABAN 20 MG TAB PO SCH (17:56)
[2018-08-01] MEDS: ATORVASTATIN CALCIUM 20 MG TAB PO SCH (22:11)
[2018-08-02] MEDS: ACETAMINOPHEN 325 MG TAB PO SCH ×4 (02:41→17:59)
[2018-08-02] MEDS: oxyCODONE IR 5 MG TAB PO PRN ×5 (03:15→20:14)
[2018-08-02] MEDS: ISOSORBIDE DINITRATE 10 MG TAB PO SCH ×2 (07:52→14:35)
[2018-08-02] MEDS: ASPIRIN 81 MG CHEWABLE TAB PO SCH (08:00)
[2018-08-02] MEDS: PRESERVISION AREDS2 FORMULA EYE VIT 1 EACH PO SCH ×2 (08:00→20:14)
[2018-08-02] MEDS: SENNOSIDES/DOCUSATE SODIUM TAB PO SCH ×2 (08:00→20:14)
[2018-08-02] MEDS: DILTIAZEM CD 120 MG CAP PO SCH ×2 (08:00→17:59)
[2018-08-02] MEDS: AMIODARONE HCL 200 MG TAB PO SCH (08:00)
--- NOTE | 2018-08-02 08:20 | SOAPPROG ---
SOAP Progress Note Assessment/Plan: Assessment: POD#7 Left thoracotomy with upper lobectomy and LN sampling Adenocarcinoma of left upper lobe - Limited resection curtailed by adhesions and upper lobectomy with LN sampling undertaken. Pathologic stage returned as T1bN1 as 1 of 9 LNs involved. Small volume loss by CXR without significant air leak. Posterior chest tube and epidural out. Anterior chest tube remains on cont suction. Attempt to reduce suction unsuccessful. Adequate pain control with multimodal analgesia. SNF rehab for reconditioning planned. F/u with oncology ([facility]) already scheduled. Acute expected blood loss anemia - Stable. No transfusions needed. VTE prophylaxis with Xarelto. 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 COPD/RELL - Stable. Extubated without incident. CPAP and chronic MDIs resumed. Suppl O2 weaned as tolerated. 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 Anticoag resumed yest. AF prophylaxis w amio and CCB. Stable CAD - s/p CABG and LCX HIRAM in 2015. Secondary prevention w baby ASA and statin. Rheumatoid arthritis - Controlled on Methotrexate. To resume at discharge. Plan: Cont pleurovac to suction. Wean O2. Cont inc activity as tolerated. Dispo - SNF rehab once CT out. 08/02/18 08:16 Subjective: In good spirits. Improving ambulatory capacity and oral intake. No acute concerns. Objective: Vital Signs Temp Pulse Resp BP Pulse Ox 36.7 C 98 16 127/58 H 98 08/02/18 07:55 08/02/18 07:55 08/02/18 07:55 08/02/18 07:55 08/02/18 07:55 Laboratory Results 07/30/18 05:35 07/30/18 05:35 08/01/18 08/02/18 08/03/18 05:59 05:59 05:59 Intake Total 600 2575 Output Total 1040 1160 400 Balance -440 1415 -400 HR and BP controlled. Suppl O2 req down to 2lpm. CTOP modest. Physical Exam - Physical Exam General Appearance: alert, no apparent distress Respiratory: lungs clear (right sided), other (Left thoracot CDI. CT to pleurovac, thin serosang drainage, no air leak w nl tidal, sm leak with valsalva ) Cardiac/Chest: regular rate, rhythm Abdomen: non-tender, soft Skin: warm/dry Extremities: other (no visible edema) ICD10 Worksheet Patient Problems: Problems Problem Status Onset Adenocarcinoma of left lung Acute Chronic Disease Mgmt/Transitional Care Acute CAD, multiple vessel Chronic Cerebral vascular disease Chronic Chronic anticoagulation Chronic Rheumatoid arthritis Chronic S/P CABG x 3 Chronic
[2018-08-02] MEDS: TIOTROPIUM INHALER 18 MCG/DOSE 5 DOSE/MDI IH SCH (09:04)
[2018-08-02] MEDS: FLUTICASONE/SALMETER 250/50MCG DISKUS IH SCH ×2 (09:04→20:18)
[2018-08-02] MEDS ORDERED: IBUPROFEN 600 MG TAB PO PRN (12:00)
[2018-08-02] MEDS: MULTIVITAMINS 1 EACH TAB PO SCH (14:36)
[2018-08-02] MEDS: RIVAROXABAN 20 MG TAB PO SCH (17:59)
[2018-08-02] MEDS: ATORVASTATIN CALCIUM 20 MG TAB PO SCH (20:14)
[2018-08-03] MEDS: ACETAMINOPHEN 325 MG TAB PO SCH ×4 (00:40→17:11)
[2018-08-03] MEDS: oxyCODONE IR 5 MG TAB PO PRN ×5 (00:40→21:52)
[2018-08-03] MEDS: ISOSORBIDE DINITRATE 10 MG TAB PO SCH ×2 (06:06→15:49)
--- NOTE | 2018-08-03 07:13 | SOAPPROG ---
SOAP Progress Note Assessment/Plan: Assessment: POD#8 Left thoracotomy with upper lobectomy and LN sampling Adenocarcinoma of left upper lobe - Limited resection curtailed by adhesions and upper lobectomy with LN sampling undertaken. Pathologic stage returned as T1bN1 as 1 of 9 LNs involved. Small volume loss by CXR without significant air leak. Posterior chest tube and epidural out. Anterior chest tube remains on cont suction. Attempt to reduce suction unsuccessful. Adequate pain control with multimodal analgesia. SNF rehab for reconditioning planned. F/u with oncology ([facility]) already scheduled. Acute expected blood loss anemia - Stable. No transfusions needed. VTE prophylaxis with Xarelto. 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 COPD/RELL - Stable. Extubated without incident. CPAP and chronic MDIs resumed. No sig suppl O2 requirement - wean in progress. 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 Anticoag resumed yest. AF prophylaxis w amio and CCB. Stable CAD - s/p CABG and LCX HIRAM in 2015. Secondary prevention w baby ASA and statin. Rheumatoid arthritis - Controlled on Methotrexate. To resume at discharge. HTN - Preop control on combination therapy. Postop reintro of meds as tolerated. Plan: Cont pleurovac to suction. Cont O2 wean. Cont inc activity as tolerated. Consider resume low dose Losartan. Dispo - SNF rehab once CT out. 08/03/18 07:10 Subjective: As comfortable as ever. Mobility cont to improve. Reg BMs. No c/o. Objective: Vital Signs Temp Pulse Resp BP Pulse Ox 36.8 C 92 20 156/76 H 92 08/03/18 04:00 08/03/18 04:00 08/03/18 04:00 08/03/18 06:06 08/03/18 04:00 Laboratory Results 07/30/18 05:35 07/30/18 05:35 08/02/18 08/03/18 08/04/18 05:59 05:59 05:59 Intake Total 2575 200 Output Total 1160 1625 Balance 1415 -1425 Uptrending SBPs Excellent sats on 2 lpm O2. Likely could wean to 1 lpm. CTOP getting more serous. Physical Exam - Physical Exam General Appearance: alert, no apparent distress Respiratory: other (Coarse left sided BS, CT to pleurovac, thin serosang drainage, min air leak w nl tidal) Cardiac/Chest: regular rate, rhythm, other (left thoracotomy CDI. Chest tube dressing CDI) Abdomen: non-tender, soft Skin: warm/dry Extremities: other (no visible edema) ICD10 Worksheet Patient Problems: Problems Problem Status Onset Adenocarcinoma of left lung Acute Chronic Disease Mgmt/Transitional Care Acute CAD, multiple vessel Chronic Cerebral vascular disease Chronic Chronic anticoagulation Chronic Rheumatoid arthritis Chronic S/P CABG x 3 Chronic
[2018-08-03] MEDS: SENNOSIDES/DOCUSATE SODIUM TAB PO SCH (08:12)
[2018-08-03] MEDS: AMIODARONE HCL 200 MG TAB PO SCH (08:12)
[2018-08-03] MEDS: ASPIRIN 81 MG CHEWABLE TAB PO SCH (08:12)
[2018-08-03] MEDS: DILTIAZEM CD 120 MG CAP PO SCH ×2 (08:12→17:11)
[2018-08-03] MEDS: PRESERVISION AREDS2 FORMULA EYE VIT 1 EACH PO SCH ×2 (08:12→21:52)
[2018-08-03] MEDS: FLUTICASONE/SALMETER 250/50MCG DISKUS IH SCH ×2 (08:55→21:18)
[2018-08-03] MEDS: TIOTROPIUM INHALER 18 MCG/DOSE 5 DOSE/MDI IH SCH (08:55)
--- NOTE | 2018-08-03 11:42 | ASMTCMCOM ---
CM Note CM Note Notes: Pts chart reviewed. Pt still has a anterior chest tube in w/ cont suction. Updates sent to [facility]. CM to follow. Plan: [facility] once medically stable and chest tube is out Date Signed: 08/03/2018 11:42 AM Electronically Signed By:ROSHAN Santos
[2018-08-03] MEDS: MULTIVITAMINS 1 EACH TAB PO SCH (11:57)
[2018-08-03] MEDS: RIVAROXABAN 20 MG TAB PO SCH (17:11)
[2018-08-03] MEDS ORDERED: SENNOSIDES/DOCUSATE SODIUM TAB PO PRN (21:00)
[2018-08-03] MEDS: ATORVASTATIN CALCIUM 20 MG TAB PO SCH (21:52)
[2018-08-04] MEDS: ACETAMINOPHEN 325 MG TAB PO SCH ×4 (00:35→17:11)
[2018-08-04] MEDS: oxyCODONE IR 5 MG TAB PO PRN ×4 (02:14→23:11)
[2018-08-04] MEDS: ISOSORBIDE DINITRATE 10 MG TAB PO SCH ×2 (06:13→16:16)
[2018-08-04] MEDS: PRESERVISION AREDS2 FORMULA EYE VIT 1 EACH PO SCH ×2 (08:53→21:13)
[2018-08-04] MEDS: ASPIRIN 81 MG CHEWABLE TAB PO SCH (08:53)
[2018-08-04] MEDS: AMIODARONE HCL 200 MG TAB PO SCH (08:53)
[2018-08-04] MEDS: DILTIAZEM CD 120 MG CAP PO SCH ×2 (08:54→17:53)
--- NOTE | 2018-08-04 09:53 | SOAPPROG ---
SOAP Progress Note Assessment/Plan: Assessment: POD#9 Left thoracotomy with upper lobectomy and LN sampling Adenocarcinoma of left upper lobe - Limited resection curtailed by adhesions and upper lobectomy with LN sampling undertaken. Pathologic stage returned as T1bN1 as 1 of 9 LNs involved. Posterior chest tube and epidural out. Anterior chest tube remains in place for persistent airleak. Today's CXR stable on -10. Adequate pain control with multimodal analgesia. SNF rehab for reconditioning planned. F/u with oncology ([facility]) already scheduled. Acute expected blood loss anemia - Stable. No transfusions needed. VTE prophylaxis with Xarelto. 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 COPD/RELL - Stable. Extubated without incident. CPAP and chronic MDIs resumed. Still requiring [place] oxygen @ 2.5 L. 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 Anticoag resumed yest. AF prophylaxis w amio and CCB. Stable CAD - s/p CABG and LCX HIRAM in 2015. Secondary prevention w baby ASA and statin. Rheumatoid arthritis - Controlled on Methotrexate. To resume at discharge. HTN - Preop control on combination therapy. Postop reintro of meds as tolerated. Plan: Decrease chest tube from -10 to waterseal; monitor for dyspnea or subq air Repeat CXR tomorrow Wean oxygen Dispo - SNF rehab Subjective: Tolerated decrease in suction from -20 to -10 Objective: Vital Signs Temp Pulse Resp BP Pulse Ox 36.9 C 97 17 96/49 L 92 08/04/18 07:55 08/04/18 08:50 08/04/18 07:55 08/04/18 08:50 08/04/18 07:55 Laboratory Results 07/30/18 05:35 07/30/18 05:35 08/03/18 08/04/18 08/05/18 05:59 05:59 05:59 Intake Total 200 900 250 Output Total 1625 1301 300 Balance -1425 -401 -50 - Physical Exam General Appearance: alert, no apparent distress Respiratory: other (Coarse left sided BS, CT to pleurovac, thin serosang drainage, mild air leak w nl tidal) Cardiac/Chest: regular rate, rhythm, other (left thoracotomy CDI. Chest tube dressing CDI) Abdomen: non-tender, soft Skin: warm/dry Extremities: other (no visible edema) ICD10 Worksheet Patient Problems: Problems Problem Status Onset Adenocarcinoma of left lung Acute Chronic Disease Mgmt/Transitional Care Acute CAD, multiple vessel Chronic Cerebral vascular disease Chronic Chronic anticoagulation Chronic Rheumatoid arthritis Chronic S/P CABG x 3 Chronic
[2018-08-04] MEDS: TIOTROPIUM INHALER 18 MCG/DOSE 5 DOSE/MDI IH SCH (10:02)
[2018-08-04] MEDS: FLUTICASONE/SALMETER 250/50MCG DISKUS IH SCH ×2 (10:02→21:59)
[2018-08-04] MEDS: MULTIVITAMINS 1 EACH TAB PO SCH (12:10)
[2018-08-04] MEDS: RIVAROXABAN 20 MG TAB PO SCH (17:11)
[2018-08-04] MEDS: ATORVASTATIN CALCIUM 20 MG TAB PO SCH (21:13)
[2018-08-05] MEDS: ACETAMINOPHEN 325 MG TAB PO SCH ×5 (00:11→23:16)
[2018-08-05] MEDS: oxyCODONE IR 5 MG TAB PO PRN (05:53)
[2018-08-05] MEDS: ISOSORBIDE DINITRATE 10 MG TAB PO SCH ×2 (05:54→15:37)
[2018-08-05] MEDS: AMIODARONE HCL 200 MG TAB PO SCH (08:53)
[2018-08-05] MEDS: ASPIRIN 81 MG CHEWABLE TAB PO SCH (08:53)
[2018-08-05] MEDS: PRESERVISION AREDS2 FORMULA EYE VIT 1 EACH PO SCH ×2 (08:54→20:12)
[2018-08-05] MEDS: DILTIAZEM CD 120 MG CAP PO SCH ×2 (08:54→17:55)
[2018-08-05] MEDS: FLUTICASONE/SALMETER 250/50MCG DISKUS IH SCH ×2 (09:10→21:39)
[2018-08-05] MEDS: TIOTROPIUM INHALER 18 MCG/DOSE 5 DOSE/MDI IH SCH (09:10)
[2018-08-05] MEDS: ALBUTEROL 60 PUFFS/8 GM MDI IH PRN (09:24)
--- NOTE | 2018-08-05 10:00 | SOAPPROG ---
ALBERTO Progress Note Assessment/Plan: Assessment: POD#10 Left thoracotomy with upper lobectomy and LN sampling Adenocarcinoma of left upper lobe - Limited resection curtailed by adhesions and upper lobectomy with LN sampling undertaken. Pathologic stage returned as T1bN1 as 1 of 9 LNs involved. Posterior chest tube and epidural out. Anterior chest tube remains in place for persistent airleak. Today's CXR stable (small apical ptx/space) on water seal. No subq air. Adequate pain control with multimodal analgesia. SNF rehab for reconditioning planned. F/u with oncology ( Nan) this Tuesday. Per pt - daughter Georgia will call their office to reschedule. Acute expected blood loss anemia - Stable. No transfusions needed. VTE prophylaxis with Xarelto. 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 COPD/RELL - Stable. Extubated without incident. CPAP and chronic MDIs resumed. Still requiring NC oxygen @ 2 L. 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 AF prophylaxis w amio and CCB. Stable CAD - s/p CABG and LCX HIRAM in 2015. Secondary prevention w baby ASA and statin. Rheumatoid arthritis - Controlled on Methotrexate. To resume at discharge. HTN - Preop control on combination therapy. Postop reintro of meds as tolerated. May restart Cozaar if pressures remain elevated. Plan: Keep chest tube to water seal CXR prn change in condition Wean oxygen as tolerated Poss restarting Cozaar if HTN >160 SBP I discussed 4 options regarding her persistent air-leak and reinforced that this was not unexpected given her previous CABG. We will let Dr. Bryant evaluate her on Tuesday when he returns. Pt understood & agreed. 1) Heimlich valve 2) Bedside talc pleurodesis 3) Return to OR 4) Wait & monitor in hospital Subjective: No complaints except for persistent airleak. Objective: Vital Signs Temp Pulse Resp BP Pulse Ox 36.9 C 93 24 H 140/71 H 95 08/05/18 07:24 08/05/18 09:13 08/05/18 09:13 08/05/18 07:24 08/05/18 09:13 Laboratory Results 07/30/18 05:35 07/30/18 05:35 08/04/18 08/05/18 08/06/18 05:59 05:59 05:59 Intake Total 900 1280 Output Total 1301 1240 225 Balance -401 40 -225 - Physical Exam General Appearance: alert, no apparent distress Respiratory: other (Coarse left sided BS, CT to pleurovac, thin serosang drainage, mild air leak w nl tidal), no subq air Cardiac/Chest: regular rate, rhythm, other (left thoracotomy CDI. Chest tube dressing CDI) Abdomen: non-tender, soft Skin: warm/dry Extremities: other (no visible edema) ICD10 Worksheet Patient Problems: Problems Problem Status Onset Adenocarcinoma of left lung Acute Chronic Disease Mgmt/Transitional Care Acute CAD, multiple vessel Chronic Cerebral vascular disease Chronic Chronic anticoagulation Chronic Rheumatoid arthritis Chronic S/P CABG x 3 Chronic
[2018-08-05] MEDS: MULTIVITAMINS 1 EACH TAB PO SCH (12:12)
[2018-08-05] MEDS: RIVAROXABAN 20 MG TAB PO SCH (17:57)
[2018-08-05] MEDS: ATORVASTATIN CALCIUM 20 MG TAB PO SCH (20:12)
[2018-08-06] MEDS: ACETAMINOPHEN 325 MG TAB PO SCH ×3 (05:06→17:44)
[2018-08-06] MEDS: ISOSORBIDE DINITRATE 10 MG TAB PO SCH ×2 (07:46→15:35)
[2018-08-06] MEDS: DILTIAZEM CD 120 MG CAP PO SCH ×2 (08:37→17:44)
[2018-08-06] MEDS: PRESERVISION AREDS2 FORMULA EYE VIT 1 EACH PO SCH ×2 (08:37→20:57)
[2018-08-06] MEDS: AMIODARONE HCL 200 MG TAB PO SCH (08:38)
[2018-08-06] MEDS: ASPIRIN 81 MG CHEWABLE TAB PO SCH (08:38)
[2018-08-06] MEDS: oxyCODONE IR 5 MG TAB PO PRN (08:52)
--- NOTE | 2018-08-06 09:41 | SOAPPROG ---
ALBERTO Progress Note Assessment/Plan: Assessment: POD#11 Left thoracotomy with upper lobectomy and LN sampling Adenocarcinoma of left upper lobe - Limited resection curtailed by adhesions and upper lobectomy with LN sampling undertaken. Pathologic stage returned as T1bN1 as 1 of 9 LNs involved. Posterior chest tube and epidural out. Anterior chest tube remains in place for persistent airleak. Today's CXR stable (small apical ptx/space) on water seal. No subq air. Adequate pain control with multimodal analgesia. SNF rehab for reconditioning planned. F/u with oncology ( Nan) this Tuesday. Per pt - daughter [place] will call their office to reschedule. Acute expected blood loss anemia - Stable. No transfusions needed. VTE prophylaxis with Xarelto. 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 COPD/RELL - Stable. Extubated without incident. CPAP and chronic MDIs resumed. Still requiring NC oxygen @ 2 L. PAF/chronic anticoagulation - Intolerant to Coumadin and on lifelong Xarelto for hx DVT/PEs and PAF. AF prophylaxis w amio and CCB. Stable CAD - s/p CABG and LCX HIRAM in 2015. Secondary prevention w baby ASA and statin. Rheumatoid arthritis - Controlled on Methotrexate. To resume at discharge. HTN - Preop control on combination therapy. May restart Cozaar if pressures remain consistently elevated. Plan: Keep chest tube to water seal CXR tomorrow Wean oxygen as tolerated Poss restarting Cozaar if SBP > 160 consistently I discussed 4 options regarding her persistent air-leak and reinforced that this was not unexpected given her previous CABG. We will let Dr. Bryant evaluate her on Tuesday when he returns. Pt understood & agreed. 1) Heimlich valve 2) Bedside talc pleurodesis 3) Return to OR 4) Wait & monitor in hospital Subjective: Some loose stools. Objective: Vital Signs Temp Pulse Resp BP Pulse Ox 37.0 C 107 H 18 146/66 H 97 08/06/18 07:16 08/06/18 08:37 08/06/18 07:16 08/06/18 07:16 08/06/18 07:16 Laboratory Results 07/30/18 05:35 07/30/18 05:35 08/05/18 08/06/18 08/07/18 05:59 05:59 05:59 Intake Total 1280 750 300 Output Total 1240 1455 400 Balance 40 -705 -100 - Physical Exam General Appearance: alert, no apparent distress Respiratory: other (Coarse left sided BS, CT to pleurovac, thin serosang drainage, mild air leak w nl tidal) Cardiac/Chest: regular rate, rhythm, other (left thoracotomy CDI. Chest tube dressing CDI) Abdomen: non-tender, soft Skin: warm/dry Extremities: other (no visible edema) ICD10 Worksheet Patient Problems: Problems Problem Status Onset Adenocarcinoma of left lung Acute Chronic Disease Mgmt/Transitional Care Acute CAD, multiple vessel Chronic Cerebral vascular disease Chronic Chronic anticoagulation Chronic Rheumatoid arthritis Chronic S/P CABG x 3 Chronic
[2018-08-06] MEDS: TIOTROPIUM INHALER 18 MCG/DOSE 5 DOSE/MDI IH SCH (10:39)
[2018-08-06] MEDS: FLUTICASONE/SALMETER 250/50MCG DISKUS IH SCH ×2 (10:40→20:58)
[2018-08-06] MEDS: MULTIVITAMINS 1 EACH TAB PO SCH (12:34)
[2018-08-06] MEDS: RIVAROXABAN 20 MG TAB PO SCH (17:44)
[2018-08-06] MEDS: ATORVASTATIN CALCIUM 20 MG TAB PO SCH (20:57)
[2018-08-07] MEDS: ACETAMINOPHEN 325 MG TAB PO SCH ×4 (01:05→18:07)
[2018-08-07] MEDS: ISOSORBIDE DINITRATE 10 MG TAB PO SCH ×2 (06:40→15:29)
--- NOTE | 2018-08-07 08:38 | SOAPPROG ---
SOAP Progress Note Assessment/Plan: POD #12: Left thoracotomy with upper lobectomy and LN sampling Adenocarcinoma of left upper lobe - s/p BATOOL with LN sampling undertaken. Pathologic stage returned as T1bN1 as 1 of 9 LNs involved. Posterior chest tube and epidural out. Anterior chest tube remains in place for persistent air leak. Heimlich valve placed with vented collection bag. Outpatient f/u with oncology ( Andnate) planned. Acute expected blood loss anemia - Stable. No transfusions needed. VTE prophylaxis with Xarelto. 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 COPD/RELL - Stable. Extubated without incident. CPAP and chronic MDIs resumed. Continue O2 for SATS > 89%. PAF/chronic anticoagulation - continue Xarelto for hx DVT/PEs and PAF. AF prophylaxis w amio and CCB. Stable CAD - s/p CABG and LCX HIRAM in 2016. Secondary prevention w baby ASA and statin. Rheumatoid arthritis - Controlled on Methotrexate. To resume at discharge. HTN - Preop control on combination therapy. May restart Cozaar if pressures remain consistently elevated. Disposition - plan for home tomorrow pending AM CXR. Subjective: Denies pain/SOB. Objective: Vital Signs Temp Pulse Resp BP Pulse Ox 37.0 C 104 H 19 129/59 H 93 08/07/18 07:39 08/07/18 07:39 08/07/18 07:39 08/07/18 07:39 08/07/18 07:39 Laboratory Results 07/30/18 05:35 07/30/18 05:35 08/06/18 08/07/18 08/08/18 05:59 05:59 05:59 Intake Total 750 1470 Output Total 1455 790 Balance -705 680 Physical Exam - Physical Exam General Appearance: WD/WN, alert, no apparent distress EENT: No scleral icterus (R), No scleral icterus (L) Neck: normal inspection Respiratory: other (CT with +air leak), No respiratory distress Cardiac/Chest: regular rate, rhythm Abdomen: non-tender, soft, No distended Skin: normal color, warm/dry Extremities: No pedal edema Neuro/Psych: no motor/sensory deficits, alert, normal mood/affect, oriented x 3 ICD10 Worksheet Patient Problems: Problems Problem Status Onset Adenocarcinoma of left lung Acute Chronic Disease Mgmt/Transitional Care Acute CAD, multiple vessel Chronic Cerebral vascular disease Chronic Chronic anticoagulation Chronic Rheumatoid arthritis Chronic S/P CABG x 3 Chronic
[2018-08-07] MEDS: ASPIRIN 81 MG CHEWABLE TAB PO SCH (08:40)
[2018-08-07] MEDS: AMIODARONE HCL 200 MG TAB PO SCH (08:40)
[2018-08-07] MEDS: PRESERVISION AREDS2 FORMULA EYE VIT 1 EACH PO SCH ×2 (08:40→20:43)
[2018-08-07] MEDS: DILTIAZEM CD 120 MG CAP PO SCH ×2 (08:40→17:15)
[2018-08-07] MEDS: TIOTROPIUM INHALER 18 MCG/DOSE 5 DOSE/MDI IH SCH (09:11)
[2018-08-07] MEDS: FLUTICASONE/SALMETER 250/50MCG DISKUS IH SCH ×2 (09:12→20:43)
[2018-08-07] MEDS ORDERED: TALC IPL ONE (09:30)
[2018-08-07] MEDS ORDERED: NS IPL ONE (09:30)
[2018-08-07] MEDS ORDERED: LIDOCAINE 1% 5 ML SDV IF ONE (09:49)
[2018-08-07] MEDS: MULTIVITAMINS 1 EACH TAB PO SCH (12:26)
--- NOTE | 2018-08-07 12:34 | ASMTCMCOM ---
CM Note CM Note Notes: This CM met with patient and her daughter to discuss discharge planning options. The patient is feeling fairly well and would like to dc to home with [facility] but would not have 24 hour care but her daughter lives within 1 mile but works as a teacher during the day. The other option would be to discharge her to a SNF but she is likely to have the hemlich avlve for about 4 weeks and feels this would be excessive level of care for that time period. Per patient's and daughter's request, a referral has been made to [facility] and a follow up to [facility] has been placed for the acceptance of hemlich valve. Awaiting return contacts. Plan: To discharge to either based on availability and surgeons preference. Date Signed: 08/07/2018 12:34 PM Electronically Signed By:Ginette Beavers RN
[2018-08-07] MEDS: oxyCODONE IR 5 MG TAB PO PRN (17:15)
[2018-08-07] MEDS: RIVAROXABAN 20 MG TAB PO SCH (17:15)
[2018-08-07] MEDS: ATORVASTATIN CALCIUM 20 MG TAB PO SCH (20:43)
[2018-08-08] MEDS: ACETAMINOPHEN 325 MG TAB PO SCH ×3 (00:55→09:08)
--- NOTE | 2018-08-08 08:43 | SOAPPROG ---
SOAP Progress Note Assessment/Plan: POD #13: Left thoracotomy with upper lobectomy and LN sampling Adenocarcinoma of left upper lobe - s/p BATOOL with LN sampling undertaken. Pathologic stage returned as T1bN1 as 1 of 9 LNs involved. Posterior chest tube and epidural out. Anterior chest tube remains in place for persistent air leak. Bedside talc pleurodesis performed 1/. Heimlich valve placed with vented collection bag. CXR stable this AM. Outpatient f/u with oncology (Nan) planned. Acute expected blood loss anemia - Stable. No transfusions needed. VTE prophylaxis with Xarelto. 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 COPD/RELL - Stable. Extubated without incident. CPAP and chronic MDIs resumed. Continue O2 for SATS > 89%. PAF/chronic anticoagulation - continue Xarelto for hx DVT/PEs and PAF. AF prophylaxis w amio and CCB. Stable CAD - s/p CABG and LCX HIRAM in 2016. Secondary prevention w baby ASA and statin. Rheumatoid arthritis - Controlled on Methotrexate. To resume at discharge. HTN - Preop control on combination therapy. May restart Cozaar if pressures remain consistently elevated. Disposition - home today with RN services. Subjective: Feels well. Denies pain/SOB. Objective: Vital Signs Temp Pulse Resp BP Pulse Ox 36.6 C 97 18 154/77 H 97 08/08/18 07:40 08/08/18 07:40 08/08/18 07:40 08/08/18 07:40 08/08/18 07:40 Laboratory Results 07/30/18 05:35 07/30/18 05:35 08/07/18 08/08/18 08/09/18 05:59 05:59 05:59 Intake Total 1470 1250 Output Total 790 475 Balance 680 775 Physical Exam - Physical Exam General Appearance: WD/WN, alert, no apparent distress EENT: No scleral icterus (R), No scleral icterus (L) Neck: normal inspection Respiratory: No respiratory distress Cardiac/Chest: regular rate, rhythm Abdomen: non-tender, soft, No distended Skin: normal color, warm/dry Extremities: No pedal edema Neuro/Psych: no motor/sensory deficits, alert, normal mood/affect, oriented x 3 ICD10 Worksheet Patient Problems: Problems Problem Status Onset Adenocarcinoma of left lung Acute Chronic Disease Mgmt/Transitional Care Acute CAD, multiple vessel Chronic Cerebral vascular disease Chronic Chronic anticoagulation Chronic Rheumatoid arthritis Chronic S/P CABG x 3 Chronic
[2018-08-08] MEDS: PRESERVISION AREDS2 FORMULA EYE VIT 1 EACH PO SCH (09:08)
[2018-08-08] MEDS: ISOSORBIDE DINITRATE 10 MG TAB PO SCH (09:09)
[2018-08-08] MEDS: ASPIRIN 81 MG CHEWABLE TAB PO SCH (09:10)
[2018-08-08] MEDS: oxyCODONE IR 5 MG TAB PO PRN (09:10)
[2018-08-08] MEDS: DILTIAZEM CD 120 MG CAP PO SCH (09:11)
[2018-08-08] MEDS: AMIODARONE HCL 200 MG TAB PO SCH (09:11)
[2018-08-08] MEDS: TIOTROPIUM INHALER 18 MCG/DOSE 5 DOSE/MDI IH SCH (09:32)
[2018-08-08] MEDS: FLUTICASONE/SALMETER 250/50MCG DISKUS IH SCH (09:32)
[2018-08-08] MEDS: ALBUTEROL 60 PUFFS/8 GM MDI IH PRN (09:35)
[2018-08-08 10:54] VITALS: BP 118/61
--- NOTE | 2018-08-08 11:23 | PDIAF ---
- Diagnosis Diagnosis: Adeno CA of BATOOL s/p BATOOL lobectomy Code Status: Full Code - Medication Management Discharge Medications: electronically signed and located in the Home Medication List. PICC Care - Routine: N/A - Orders Services needed: Home Care, Registered Nurse, Physical Therapy, Occupational Therapy Home Care Face to Face: I certify that this patient was under my care and that I had the required [id number] encounter meeting the encounter requirements on the discharge day. My findings support the fact that the patient is homebound as defined in Home Care Face to Face Continued: CMS Chapter 7 Medicare Benefits Manual 30.1.1 , The condition of the patient is such that there exists a normal inability to leave home and consequently, leaving home would require a considerable and taxing effort. Isolation Type: None Oxygen: 1 L/min NC, continuous Diet Recommendation: cardiac -low fat low salt Diet Texture: Regular Texture Diet, Thin Liquids, Meds Whole w/Liquids Hester: Not applicable Additional Instructions: - Okay to leave wound and chest tube sites open to air - Heimlich valve with collection bag to be attached at all times (management instructions given to patient and daughter) - Call [facility] with any problems - Labs/Radiology Imaging Orders: CXR at [facility] 08/15 prior to surgical f/u - Follow Up Care Current Providers and Referrals: Manish Bryant DO [Doctor of Osteopathy] - 08/15/18 2:15 pm Jeff Buck MD [Primary Care Provider] -
--- NOTE | 2018-08-08 12:25 | PDHOMEO2F ---
Home Oxygen Face to Face Home Orders: I certify that a physician or a nurse practitioner or physician's medical library assistant has had a [id number] encounter with this patient on the date of this order due to the diagnosis listed, which relates to the primary reason the patient requires home oxygen. Alternative treatments have been tried, or considered, and deemed ineffective. It is anticipated that supplemental oxygen will result in improvement with treatment. Home oxygen qualifying diagnosis: Lung CA, BATOOL resection, persistent air leak, SOB SpO2 on room air (%): 86 Frequency of home oxygen needed: continuous Home oxygen liters per minute: 1 Home oxygen delivery device: nasal cannula Concentrator: Yes E-tanks for mobility and back up: Yes If ordering portable O2, is the patient mobile in the home?: Yes I certify that, based on these findings, the home oxygen is medically necessary for this patient for the following length of time. Length of time home oxygen needed: 3 months
[2018-08-08] MEDS: MULTIVITAMINS 1 EACH TAB PO SCH (12:39)
--- NOTE | 2018-08-08 13:35 | PDDCSUM ---
Discharge Summary Discharge Summary: ADMISSION DATE: 07/26/18 DISCHARGE DATE: 08/08/18 ADMISSION DIAGNOSES 1. Adenocarcinoma of left upper lobe 2. 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 Adenocarcinoma of left upper lobe 2. 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 Acute blood loss anemia PROCEDURES 07/26/18 (Manish Bryant): Left thoracotomy with left upper lobe lobectomy, lymph node sampling HPI 78F with adenocarcinoma of left upper lobe admitted for elective resection. HOSPITAL COURSE BY PROBLEM LIST 1. Adenocarcinoma of left upper lobe with adenocarcinoma of one lymph node associated with left upper lobe - persistent air leak requiring bedside talk pleurodesis and placement of Heimlich valve with vented collection bag. 2. 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 3. Acute blood loss anemia - stable without the need for transfusions. CONDITION Good DISPOSITION Home with services PERTINENT DISCHARGE CLINICAL INFORMATION Vitals: 118/61, 93 SR, 95% on 1 L/min of O2 Exam: NAD, S1S2, No resp distress, Heimlich valve in place with vented collection bag, ND, soft, NTP, LE without edema BL. ACTIVITY Pt was instructed on Heimlich valve, activity limitations, and which problems to call [facility] with. Please see Discharge Plan in chart for specifics. DISCHARGE MEDICATIONS Continue: MVI, Methotrexate, Dulera Inhaler, Xarelto 20 mg DAILY, ASA 81 mg DAILY, Tylenol OTC PRN, Amiodarone 100 mg DAILY, Isosorbide Dinitrate 15 mg PO BID, Cardizem ER 120 mg BID, Lipitor 20 mg QS, Spiriva Inhaler New: Oxycodone IR 5 mg PO Q4H PRN pain #20 Stop Lovenox, Cozaar PENDING STUDIES/LABS 1. CXR prior to surgical follow-up FOLLOW-UP 1. Manish Bryant, 08/15/18, 2:15 PM 2. Oncology as directed
--- NOTE | 2018-08-08 15:16 | ASDISCHSUM ---
Discharge Information Plan Status:SNF Medically Cleared to Leave: Discharge Date:08/08/2018 02:09 PM CM D/C Disposition:Assisted Facility ADT D/C Disposition:Home Health Service Projected Discharge Date:08/01/2018 11:00 AM Transportation at D/C:Wheelchair Van Discharge Delay Reason: Follow-Up Date:08/01/2018 11:00 AM Discharge Slot: Final Diagnosis:Lung CA Placement Information Referral Type:*Fdc/SNF Referral ID:[id number] Provider Name: Address 1: Phone Number: Address 2: Fax Number: City: Selection Factors: State: Referral Type:*Home Health Care Services Referral ID:[id number] Provider Name:[facility] Address 1:[facility] Address 2: City:[place] Selection Factors: State:[place] Patient Contact Information Contact Name:CHICHO Relationship:Daughter Address: City:[place] Alternate Phone: State/Zip Code:[place] [address] Email: Financial Information Financial Class:Medicare Primary Plan Desc:MEDICARE INPATIENT Primary Plan Number:[id number] Secondary Plan Desc:MEDICA Secondary Plan Number:[id number] Assessment Information [facility] CM Progress Note CM Note CM Note Notes: 78yo female admitted for lung CA. She has a Hx of CABG x 3, COPD, Anemia, CHF, Afib, Chronic anticoagulation, RELL-Cpap, Former smoker. She had her BATOOL resection. Therapies to eval for discharge needs. CM to follow. Date Signed: 07/26/2018 05:44 PM Electronically Signed By:Shanti Farmer LCSW LACE LACE Acuity / Level of Answers: Yes Care: Did the patient have an inpatient admission? Comorbidities - select Answers: Any tumor (including all that apply lymphoma or leukemia) Chronic pulmonary disease Congestive heart failure Coronary Artery Disease Other Notes: Chronic anticoagulation, RELL, A nem ia, # of Emergency department Answers: 0 visits in the last 6 months Score: 12 Date Signed: 07/26/2018 05:47 PM Electronically Signed By:Shanti Farmer LCSW [facility] CM Progress Note CM Note CM Note Notes: Patient interested in SNF rehab. She would like referrals to be sent to [facility] and [facility]. Referrals have been sent to those facilities. Date Signed: 07/27/2018 02:34 PM Electronically Signed By:Shanti Farmer LCSW [facility] CM Progress Note CM Note CM Note Notes: Patient has a prolonged airleak and will have a bedside pleurodesis tomorrow AM. Repeat CXR tomorrow. To SNF pending CT removal. Current CM Discharge plan: [facility] Date Signed: 07/31/2018 11:30 AM Electronically Signed By:Lo Witt RN [facility] CM Progress Note CM Note CM Note Notes: Pts chart reviewed. Pt still has a anterior chest tube in w/ cont suction. Updates sent to [facility]. [facility] follow[facility] and chest tube is out Date Signed: 08/03/2018 11:42 AM Electronically Signed By:ROSHAN Santos [facility] Progress Note CM Note CM Note Notes: This CM met with patient and her daughter to discuss discharge planning options. The patient is feeling fairly well and would like to dc to home with [facility] but would not have 24 hour care but her daughter lives within 1 mile but works as a teacher during the day. The other option would be to discharge her to a SNF but she is likely to have the hemlich avlve for about 4 weeks and feels this would be excessive level of care for that time period. Per patient's and daughter's request, a referral has been made to [facility] and a follow up to [facility] has been placed for the acceptance of hemlich valve. Awaiting return contacts. Plan: To discharge to either based on availability and surgeons preference. Date Signed: 08/07/2018 12:34 PM Electronically Signed By:Ginette Beavers RN Case Management Discharge Plan Note Case Management Discharge Discharge Order Complete? Answers: Yes Patient to Obtain Answers: via Family Medications Transportation Arranged Answers: Family/Friends Faxed Final Orders Answers: Yes Agency/Facility Transfer Answers: Yes Report Printed & Faxed to Receiving Agency Family Notified Answers: Yes Discharge Comments Notes: CM met with pt and daughter, [place]. Agreeable to home with [facility]. Dtr is always available to help, pt has life alert. Pt feels safe to go home with [facility]. CM notified RT of pt's questions about O2 after discharge. CM submit discharge ppwk to [facility] and spoke with rep Alex from [facility]. Family to transport. No other needs identified. Date Signed: 08/08/2018 03:15 PM Electronically Signed By:ROSHAN Robison Intervention Information
== END 2018-08-08 14:09 | disposition home health service (06) | DRG 164 ==
LOC: F2N 05:45 → F2W 07-27 13:35
PROVIDERS: ADMIT Thoracic Surgery (Cardiothoracic Vascular Surgery); ATTEND Thoracic Surgery (Cardiothoracic Vascular Surgery)
PROC: 3E0S3NZ Introduction of Analgesics, Hypnotics, Sedatives into Epidural Space, Percutaneous Approach (ICD-10-PCS; principal; 2018-07-26 07:15)
PROC: 07B70ZZ Excision of Thorax Lymphatic, Open Approach (ICD-10-PCS; principal; 2018-07-26 07:15)
PROC: 0BTC0ZZ Resection of Right Upper Lung Lobe, Open Approach (ICD-10-PCS; principal; 2018-07-26 07:15)
PROC: 3E0L3GC Introduction of Other Therapeutic Substance into Pleural Cavity, Percutaneous Approach (ICD-10-PCS; 2018-08-07)
DX: C34.12 Malignant neoplasm of upper lobe, left bronchus or lung (principal); C34.11 Malignant neoplasm of upper lobe, right bronchus or lung; C77.1 Secondary and unspecified malignant neoplasm of intrathoracic lymph nodes; D62 Acute posthemorrhagic anemia; J95.812 Postprocedural air leak; J44.9 Chronic obstructive pulmonary disease, unspecified; Z87.891 Personal history of nicotine dependence; I27.23 Pulmonary hypertension due to lung diseases and hypoxia; I25.10 Atherosclerotic heart disease of native coronary artery without angina pectoris; Z95.1 Presence of aortocoronary bypass graft; I48.0 Paroxysmal atrial fibrillation; Z79.01 Long term (current) use of anticoagulants; I50.9 Heart failure, unspecified; G47.33 Obstructive sleep apnea (adult) (pediatric); D68.51 Activated protein C resistance; Z86.718 Personal history of other venous thrombosis and embolism; Z86.711 Personal history of pulmonary embolism; E78.5 Hyperlipidemia, unspecified; M06.9 Rheumatoid arthritis, unspecified; Z98.1 Arthrodesis status; Z96.641 Presence of right artificial hip joint
CPT/HCPCS: 97110-GP; 97116-GP; 97161-GP; 97166-GO; 97530-GO; 97530-GP; 97535-GO; G8978-GP-CJ; G8979-GP-CI; G8987-GO-CL; G8988-GO-CI; J0690; J1100; J1170; J1885; J2250; J2270; J2370; J2405; J2704; J3010

== ENCOUNTER → 2018-08-15 | Outpatient (CLI) | payer OTHER | LOC: FIMAGING 14:22 → EDSTATUS 14:24 | PROVIDERS: ATTEND Thoracic Surgery (Cardiothoracic Vascular Surgery) | DX: Z09 Encounter for follow-up examination after completed treatment for conditions other than malignant neoplasm (principal); Z98.890 Other specified postprocedural states ==

== ENCOUNTER → 2018-08-22 | Outpatient (CLI) | payer OTHER | LOC: FIMAGING 10:50 | PROVIDERS: ATTEND Thoracic Surgery (Cardiothoracic Vascular Surgery) | DX: J94.2 Hemothorax (principal); Z98.890 Other specified postprocedural states ==

== ENCOUNTER 2018-08-31 08:22 | Inpatient (IN) | payer OTHER ==
[2018-08-31] MEDS ORDERED: MEPERIDINE 25 MG/ML SYR IVP PRN (12:31)
[2018-08-31] MEDS ORDERED: FLUMAZENIL 0.5 MG/5 ML MDV IVP PRN (12:31)
[2018-08-31] MEDS ORDERED: MIDAZOLAM 2 MG/2 ML VIAL IVP PRN (12:31)
[2018-08-31] MEDS ORDERED: fentaNYL 100 MCG/2 ML INJ IVP PRN (12:31)
[2018-08-31] MEDS ORDERED: NALOXONE HCL 0.4 MG/ML INJ IVP PRN (12:31)
[2018-08-31] MEDS ORDERED: NS 1,000 ML IV SCH (12:45)
[2018-08-31] MEDS ORDERED: LIDOCAINE 1% 300 MG/30 ML SDV ONE (12:51)
--- NOTE | 2018-08-31 13:34 | PDGENHP ---
History & Physical Chief Complaint: BATOOL AIR-FLUID COLLECTION History of Present Illness: S/P LUNG SURGERY WITH PERSISTENT AIR-FLUID COLLECTION. INCREASED WBC. Pertinent Past, Social, Family History: RECENT LOBECTOMY. Relevant Physical Exam: IN NO DISTRESS. Cardiorespiratory Assessment: RRR,
--- NOTE | 2018-08-31 13:46 | PDGENHP ---
"History and Physical - Chief Complaint fevers, chest tightness - History of Present Illness This is a pleasant 78F who underwent left thoracotomy upper lobectomy with lymphadenectomy (adenocarcinoma, pT1bN1) on 07/26/[address] Bryant who now presents with a 3-day history of fever, fatigue, and chest tightness. Her postoperative course was complicated by persistent air leak requiring prolonged chest tube which was removed on 08/22/18. She also underwent bedside talc pleurodesis during her hospitalization. She was previously on 1L oxygen, however , she needed to increase to 2L oxygen to maintain sats >89%. Her self reported Tmax was 99.8, yet she states she runs lower at 98.5. She has not taken any tylenol or ibuprofen. Associated symptoms include malaise, RANKIN, and wheezing. No pain. No incision erythema or drainage. CXR today concerning for loculated apical empyema. WBC with leukocytosis at 14k. She is hemodynamically stable. Afebrile at 98.2. VS (clinic) 56.6 kg | 95% 2 L | 93 HR | 98.2*F | 118/70 History Information - Allergies/Home Medication List Allergies/Adverse Reactions: levofloxacin Allergy (Verified 07/21/18 16:17) nausea tramadol Allergy (Verified 07/13/18 09:12) Vomiting warfarin Allergy (Verified 07/21/18 16:17) nausea - adverse reaction Home Medications: Methotrexate Sodium [Methotrexate] 17.5 mg PO WE@03/25/15 [Last Taken ] Multivitamins [Multivitamin (*)] 1 each PO DAILY@03/25/15 [Last Taken ] Mometasone/Formoterol [Dulera 100 Mcg/5 Mcg Inhaler] 2 puffs IH BID 11/07/15 [ Last Taken 07/25/18] Amiodarone HCl [Pacerone (*)] 100 mg PO DAILY 08/02/17 [Last Taken 07/25/18] Isosorbide Dinitrate 0.5 tab PO BID 06/14/18 [Last Taken 07/25/18] Atorvastatin Calcium [Lipitor 20 mg (*)] 20 mg PO HS 07/26/18 [Last Taken ] C/E/Zn/Cu/OM3/DHA/EPA/LUT/ZEAX [Preservision Areds 2 Softgel] 1 each PO BID [Last Taken Unknown] Diltiazem Cd [Cardizem ER 120 MG (*)] 120 mg PO BID@07/26/18 [Last Taken 07/25/18] Herbals/Supplements -Info Only 1 each PO DAILY 07/26/18 [Last Taken Unknown] Tiotropium Inhaler [Spiriva Inhaler (RX)] 1 inh IH DAILY 07/26/18 [Last Taken Unknown] I have personally reviewed and updated: family history, medical history, social history, surgical history - Past Medical History atrial fibrillation, coronary artery disease, cancer, COPD, hypertension, hyperlipidemia, myocardial infarction, pulmonary embolism - Surgical History Reports: coronary bypass surgery, cancer surgery - Family History Positive for: non-pertinent - Social History Smoking Status: Former smoker Review of Systems Review of Systems: ROS: 2-9 pt reviewed & negative except for what was stated in HPI & below Physical Exam Physical Exam: Temp Pulse Resp BP Pulse Ox 36.6 C 86 20 141/64 H 98 08/31/18 12:35 08/31/18 12:35 08/31/18 12:35 08/31/18 12:35 08/31/18 12:35 O2 (L/minute) 2 Constitutional: not in pain, uncomfortable Eyes: icteric sclera, pale conjunctiva Ears, Nose, Mouth, Throat: moist mucous membranes, hard of hearing Cardiovascular: regular rate and rhythym, no murmur, rub, or gallop Respiratory: clear to auscultation, other (decreased BS left apical space, 2 L nc oxygen) Gastrointestinal: soft, non-tender abdomen Skin: warm, normal color, other (chest tube site and left thoracotomy incision c /d/i) Neurologic: AAOx3 Psychiatric: interacting appropriately, thought process linear Lab Data & Imaging Review CBC: WBC 14.14 Hgb 10.3 Hct 33.5 Plt 499 Imaging Review: CXR: Enlarging 10.5 x 5.5 cm hydropneumothorax versus empyema Visualized and Interpreted Chest x-ray results: Yes Assessment & Plan Assessment: Postoperative left apical empyema s/p thoracotomy LULobectomy with LAD 07/26/18 CAD s/p CABG w CONDON graft 2016 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
[2018-08-31] MEDS ORDERED: METOCLOPRAMIDE 10 MG TAB PO PRN (14:18)
[2018-08-31] MEDS ORDERED: METOCLOPRAMIDE 10 MG/2 ML VIAL IVP PRN (14:18)
[2018-08-31] MEDS ORDERED: ACETAMINOPHEN 325 MG TAB PO PRN (14:30)
--- NOTE | 2018-08-31 14:39 | PDRADPN ---
Radiology Procedure Note Date of Procedure: 08/31/18 Radiologist: Sandie Chapa Anesthesia: IV Sedation Pre-op Diagnosis: BATOOL ABSCESS Post-op Diagnosis: SAME Indication: INFECTION Procedure: CT GUIDED BATOOL DRAIN PLACEMENT Finding(s): 90CC PURULENT MATERIAL ASPIRATED, SENT FOR GS/CX. DRAIN LEFT IN PLACE. Inf/Abcess present in the surg proc area at time of surgery?: No
--- NOTE | 2018-08-31 15:26 | PDMN ---
Medical Necessity Medical necessity: Pt meets IP criteria as of 08/31/2018 per and MCG M540 ( pleural effusion); est los > 2 mn for ongoing tx and management of empyema.
[2018-08-31] MEDS: CEFEPIME HCL 1 GM in NS 50 ML IV SCH ×2 (17:50→22:10)
[2018-08-31] MEDS: DILTIAZEM CD 120 MG CAP PO SCH (17:51)
[2018-08-31] MEDS: ONDANSETRON 4 MG/2 ML VIAL IVP PRN (18:09)
[2018-08-31] MEDS: HYDROCODONE/APAP 5/325 TAB PO PRN ×2 (18:36→23:05)
--- NOTE | 2018-08-31 19:29 | PDCONSULT ---
Carpenter Assistant Installer Note: Infectious Diseases Consult Note Impression: 78-year-old woman with empyema complicating left upper lobectomy for adenocarcinoma resection (07.26.18). 1. BATOOL empyema; drain placed 08.31.18 2. BATOOL adenocarcinoma; Resected 07/26/18 3. COPD Plan: 1. Cefepime 1gm q8 hours 2. Follow abscess cultures Kurtis Ellis MD Infectious Diseases Chief Complaint: Fever Requesting Provider: Dr. Bryant Reason for Referral: Consultation was requested by Dr. Bryant regarding antimicrobial management. HPI: 78-year-old woman admitted after developing fever starting Tuesday of this week. She initially thought fever would resolved on its own but continued Tuesday and Tuesday. She made an appointment with her thoracic surgeon who performed her BATOOL lobectomy in July who found an abscess/empyema on chest imaging as the likely cause of fever. She underwent aspiration of approximately 90cc of purulent material and drain placement today. She notes pain in her left shoulder but no further fevers today. No sick contacts prior to admission. She underwent BATOOL lobectomy with pathology showing adenocarcinoma with clean margins and no hilar lymph node spread. She was diagnosed with rheumatoid arthritis in the early and has received therapy with gold, hydroxychloroquine, penicillamine, methotrexate, and Remicade. She has been off Remicade since ~2015 and has taken methotrexate without side effect since the late . No active joint disease. She has not had opportunistic infections complicating her RA treatment. Travel history: Has lived in [place], [place], [place], [place], [place]; Travel to [place], [place] Past Medical History: Left-sided lung adenocarcinoma; Rheumatoid arthritis Past Surgical History: Left upper lobe lobectomy Social History: No alcohol, drugs, or smoking currently; Former smoker Family History: No recurrent infections. Allergies: Levofloxacin (made her feel terrible after ~5 doses) Medications: Reviewed in medical record and confirmed with patient. ROS: 10 organ systems reviewed; pertinent positives and negatives listed in the HPI, all other organ systems negative. Physical Exam: VS: Reviewed Gen: No acute distress; Breathing comfortably without exogenous oxygen; Able to speak in complete sentences Eyes: No conjunctival injection; No scleral icterus HENT: No gross deformities Neck: No limitation in range of motion Pulm: Breath sounds clear to the bases bilaterally; No wheeze, rhonchi, or rales CV: Normal S1 and S2; Regular rate and rhythm; No murmurs, rubs, or gallops; No lower extremity edema Abd: Not distended; Hypo-active bowel sounds; Soft; Non-tender Skin: A full skin exam including exposed bilateral upper extremities, bilateral lower extremities to the knees, face, neck, abdomen, chest, and back performed; Skin intact, warm, with no rash MSK: Joints without erythema or edema; No gross limitation in range of motion Ext: No clubbing or cyanosis Neuro: Awake and alert Psych: Normal mood and affect Labs/Imaging: All microbiology testing (culture and non-culture) reviewed in the medical record. Personally reviewed and interpreted the images of the following radiographs: chest CT showing left-sided empyema. Microbiology 08/31/18 14:10 Lung - Aspirate Gram Stain - Final Laboratory Tests 08/31/18 08/31/18 16:25 16:25 WBC 10.06 H Plt Count 448 H Creatinine 0.6 Antimicrobials: Cefepime Ongoing monitoring for antimicrobial toxicity with: CBC, BMP. Ygzy-[id number] time with patient: 67 minutes with >50% of [id number] time spent in counseling, patient education, and coordinating care. Counseling provided included the microbiology of pleural space infections, expected time to resolution, natural history without treatment, and side effects of treatment.
[2018-08-31] MEDS: ATORVASTATIN CALCIUM 20 MG TAB PO SCH (22:10)
[2018-08-31] MEDS: HEPARIN 5,000 UNIT/0.5 ML INJ SC SCH (22:11)
[2018-08-31] MEDS: Mometasone/Formoterol [Dulera 200 Mcg/5 Mcg Inhaler] 2 PUFFS IH SCH (22:17)
[2018-09-01 04:45] LABS: PLATELET COUNT 426 10^3/uL (150-400)
[2018-09-01] MEDS: CEFEPIME HCL 1 GM in NS 50 ML IV SCH (06:05)
[2018-09-01] MEDS: HEPARIN 5,000 UNIT/0.5 ML INJ SC SCH ×3 (06:05→21:31)
--- NOTE | 2018-09-01 07:59 | SOAPPROG ---
SOAP Progress Note Assessment/Plan: h/o adenocarcinoma of left upper lobe s/p BATOOL lobectomy with post-operative left apical empyema s/p drain placement by IR - Pt clinically better this AM. Discussed with Dr. Bryant - no plan for surgical I&D. - ABX as per ID - Drain mgmt as per IR - Pain mgmt - Will continue to hold methotrexate for active infection - Will continue to hold Xarelto as drainage bloody - PT/OT - DVT prophylaxis - SCDs/heparin SQ Subjective: Pt reports feeling much better. Has more energy. Breathing is easier. Has pain around drain site which hurts more when she moves her left arm. Objective: Vital Signs Temp Pulse Resp BP Pulse Ox 36.4 C 92 18 152/65 H 91 L 09/01/18 07:49 09/01/18 07:49 09/01/18 07:49 09/01/18 07:49 09/01/18 07:49 Microbiology 08/31/18 14:10 Gram Stain - Final Lung - Aspirate Laboratory Results 09/01/18 03:42 09/01/18 03:42 08/31/18 09/01/18 09/02/18 05:59 05:59 05:59 Intake Total 845 75 Output Total 595 Balance 250 75 Physical Exam - Physical Exam General Appearance: WD/WN, alert, no apparent distress EENT: No scleral icterus (R), No scleral icterus (L) Neck: normal inspection Respiratory: No respiratory distress Cardiac/Chest: other (drain intact with blood drainage in tube ), No bradycardia , No tachycardia Abdomen: non-tender, soft, No distended Skin: normal color, warm/dry Extremities: No pedal edema Neuro/Psych: no motor/sensory deficits, alert, normal mood/affect, oriented x 3 ICD10 Worksheet Patient Problems: Problems Problem Status Onset Adenocarcinoma of left lung Acute Chronic Disease Mgmt/Transitional Care Acute CAD, multiple vessel Chronic Cerebral vascular disease Chronic Chronic anticoagulation Chronic Rheumatoid arthritis Chronic S/P CABG x 3 Chronic
[2018-09-01] MEDS ORDERED: traMADol 50 MG TAB PO PRN (08:26)
[2018-09-01] MEDS ORDERED: MAGNESIUM HYDROXIDE 30 ML UDCUP PO PRN (08:28)
[2018-09-01] MEDS ORDERED: POLYETHYLENE GLYCOL 3350 17 GM PKT PO PRN (08:28)
[2018-09-01] MEDS ORDERED: LACTULOSE 20 GM/30 ML UDCUP PO PRN (08:28)
[2018-09-01] MEDS ORDERED: BISACODYL 10 MG SUPP PR PRN (08:28)
[2018-09-01] MEDS: Mometasone/Formoterol [Dulera 200 Mcg/5 Mcg Inhaler] 2 PUFFS IH SCH ×3 (08:40→22:26)
[2018-09-01] MEDS: TIOTROPIUM INHALER 18 MCG/DOSE 5 DOSE/MDI IH SCH (08:40)
[2018-09-01] MEDS: IBUPROFEN 200 MG TAB PO PRN ×3 (09:02→21:31)
[2018-09-01] MEDS: ASPIRIN 81 MG CHEWABLE TAB PO SCH (09:04)
[2018-09-01] MEDS: SENNOSIDES/DOCUSATE SODIUM TAB PO SCH ×2 (09:05→20:22)
[2018-09-01] MEDS: AMIODARONE HCL 200 MG TAB PO SCH (09:06)
[2018-09-01] MEDS: DILTIAZEM CD 120 MG CAP PO SCH ×2 (09:07→17:28)
[2018-09-01] MEDS: ISOSORBIDE DINITRATE 10 MG TAB PO SCH ×2 (10:04→20:21)
--- NOTE | 2018-09-01 10:40 | PCMIDPN ---
Assessment/Plan: Assessment: 78-year-old woman with left-sided abscess/empyema with gram- positive cocci in chains on Gram stain which is likely to represent an abscessogenic streptococcal species, with Streptococcus anginosus likely. She remains without systemic signs or symptoms of ongoing infection, near complete drainage by IR yesterday increasing the chance of curing this infection. With no gram negatives recovered will target streptococcal species with ceftriaxone. 1. Left upper lobe abscess/empyema, drain placed 08/31/2018 2. Left upper lobe adenocarcinoma; resected 07/26/2018 3. COPD 4. History of rheumatoid arthritis, remains on methotrexate monotherapy Plan: 1. Stop cefepime 2. Start ceftriaxone 2 g daily 3. Discussed potential side effects of ceftriaxone which include antibiotic associated diarrhea, rash, C diff colitis Kurtis Ellis MD Infectious Diseases 09/01/18 10:40 Subjective: No fever or chills. Denies diarrhea, nausea, rash. Appetite improving. No new concerns today. Objective: Vital Signs Temp Pulse Resp BP Pulse Ox 36.4 C 85 18 152/65 H 96 09/01/18 07:49 09/01/18 09:07 09/01/18 08:41 09/01/18 09:07 09/01/18 08:41 Microbiology 08/31/18 14:10 Gram Stain - Final Lung - Aspirate Laboratory Results 09/01/18 03:42 09/01/18 03:42 08/31/18 09/01/18 09/02/18 05:59 05:59 05:59 Intake Total 845 75 Output Total 595 305 Balance 250 -230 Medications Generic Name Dose Route Start Last Admin Trade Name Freq PRN Reason Stop Dose Admin Ceftriaxone Sodium 2 gm/ 50 mls @ 100 mls/hr 09/01/18 09:30 09/01/18 10:04 Sodium Chloride IV 10/01/18 09:29 50 mls DAILY ANGELIQUE Protocol Discontinued Medications Generic Name Dose Route Start Last Admin Trade Name Freq PRN Reason Stop Dose Admin Cefepime HCl 1 gm/ Sodium 50 mls @ 100 mls/hr 08/31/18 16:30 09/01/18 06:05 Chloride IV 09/30/18 16:29 50 mls Q8HRS ANGELIQUE Protocol Microbiology 08/31/18 14:10 Lung - Aspirate Gram Stain - Final Laboratory Tests 08/31/18 09/01/18 16:25 03:42 WBC 10.06 H 8.41 Plt Count 448 H 426 H Absolute Neuts (auto) 5.52 Absolute Lymphs (auto) 1.65 - Physical Exam General Appearance: no apparent distress, non-toxic EENT: No scleral icterus Respiratory: No respiratory distress (Clear breath sounds to the bases bilaterally, slight expiratory wheeze on the left, coarse breath sounds throughout) Neck: supple Cardiac/Chest: regular rate, rhythm, systolic murmur, No bradycardia, No tachycardia, No diastolic murmur Abdomen: normal bowel sounds, non-tender, soft, No distended, No guarding Back: normal inspection Skin: No rash Neuro/Psych: alert, normal mood/affect, oriented x 3 - Time Spent With Patient Time Spent with Patient: greater than 25 minutes Time Spent with Patient: Greater than 25 minutes spent on this patients care, greater than 50% of time spent counseling, educating, and coordinating care regarding the above mentioned plan. ICD10 Worksheet Patient Problems: Problems Problem Status Onset Adenocarcinoma of left lung Acute Chronic Disease Mgmt/Transitional Care Acute CAD, multiple vessel Chronic Cerebral vascular disease Chronic Chronic anticoagulation Chronic Rheumatoid arthritis Chronic S/P CABG x 3 Chronic
[2018-09-01] MEDS: ONDANSETRON 4 MG/2 ML VIAL IVP PRN (14:55)
--- NOTE | 2018-09-01 16:29 | ASMTCMCOM ---
CM Note CM Note Notes: 09/01/2018 Case Management Note Pt admitted for empyema. Chest tube placed. Met w/pt to discuss d/c needs. Several admissions since July. Pt prefers to return home and resume [facility]. Faxed updates to [facility]. Pt daughter Ananth [phone] lives nearby and assists with grocery shopping, meal prep plus laundry. Pt lives in a town home that takes care of all lawncare needs and snow removal. Awaiting PT OT johnnie. Case Management d/c poc: anticipating home resuming [facility] Case Management to follow. Date Signed: 09/01/2018 04:28 PM Electronically Signed By:Socorro Land RN
[2018-09-01] MEDS: ATORVASTATIN CALCIUM 20 MG TAB PO SCH (20:22)
[2018-09-01] MEDS ORDERED: ALBUTEROL 60 PUFFS/8 GM MDI IH ONE (21:43)
[2018-09-02] MEDS: HEPARIN 5,000 UNIT/0.5 ML INJ SC SCH ×3 (05:37→20:55)
[2018-09-02] MEDS: Mometasone/Formoterol [Dulera 200 Mcg/5 Mcg Inhaler] 2 PUFFS IH SCH ×2 (05:41→20:28)
[2018-09-02] MEDS: TIOTROPIUM INHALER 18 MCG/DOSE 5 DOSE/MDI IH SCH (05:42)
[2018-09-02] MEDS: IBUPROFEN 200 MG TAB PO PRN ×2 (06:21→17:37)
--- NOTE | 2018-09-02 08:06 | SOAPPROG ---
SOAP Progress Note Assessment/Plan: h/o adenocarcinoma of left upper lobe s/p BATOOL lobectomy with post-operative left apical empyema s/p drain placement by IR on 08/31 - Pt continue to be clinically well - ABX as per ID - Gram stain shows Step, cultures pending - Drain mgmt as per IR - Pain mgmt - Will continue to hold methotrexate for active infection - Will consider restarting Xarelto (AF thromboprophylaxis) today as drainage now serous - PT/OT - DVT prophylaxis - SCDs/heparin SQ - DC planning likely home early next week Subjective: Pain well-controlled with NSAIDs. [place] "wheezing" when laying flat. Denies SOB. Objective: Vital Signs Temp Pulse Resp BP Pulse Ox 36.6 C 104 H 18 127/56 H 98 09/02/18 07:53 09/02/18 07:53 09/02/18 07:53 09/02/18 07:53 09/02/18 07:53 Microbiology 08/31/18 14:10 Gram Stain - Final Lung - Aspirate 08/31/18 14:10 Mycobacterial Smear (CHRISTEL) - Final Lung - Aspirate Laboratory Results 09/01/18 03:42 09/01/18 03:42 09/01/18 09/02/18 09/03/18 05:59 05:59 05:59 Intake Total 845 175 Output Total 595 1150 Balance 250 -975 Physical Exam - Physical Exam General Appearance: WD/WN, alert, no apparent distress EENT: No scleral icterus (R), No scleral icterus (L) Neck: No normal inspection Respiratory: No respiratory distress Cardiac/Chest: other (drain intact), No bradycardia, No tachycardia Abdomen: non-tender, soft, No distended Skin: normal color, warm/dry Extremities: No pedal edema Neuro/Psych: no motor/sensory deficits, alert, normal mood/affect, oriented x 3 ICD10 Worksheet Patient Problems: Problems Problem Status Onset Empyema, left Acute Adenocarcinoma of left lung Acute Chronic Disease Mgmt/Transitional Care Acute CAD, multiple vessel Chronic Cerebral vascular disease Chronic Chronic anticoagulation Chronic Rheumatoid arthritis Chronic S/P CABG x 3 Chronic
[2018-09-02] MEDS: SENNOSIDES/DOCUSATE SODIUM TAB PO SCH ×2 (09:00→20:57)
[2018-09-02] MEDS ORDERED: Herbals/Supplements -Info Only PO SCH (09:00)
[2018-09-02] MEDS: ASPIRIN 81 MG CHEWABLE TAB PO SCH (09:00)
[2018-09-02] MEDS: AMIODARONE HCL 200 MG TAB PO SCH (09:01)
[2018-09-02] MEDS: PRESERVISION AREDS2 FORMULA EYE VIT 1 EACH PO SCH ×2 (09:01→20:56)
[2018-09-02] MEDS: FERROUS SULFATE 325 MG TAB PO SCH (09:01)
[2018-09-02] MEDS: ISOSORBIDE DINITRATE 10 MG TAB PO SCH ×2 (09:01→15:30)
[2018-09-02] MEDS: DILTIAZEM CD 120 MG CAP PO SCH ×2 (09:01→17:36)
[2018-09-02] MEDS: MULTIVITAMINS 1 EACH TAB PO SCH (12:05)
--- NOTE | 2018-09-02 12:08 | PCMIDPN ---
Assessment/Plan: Assessment: Empyema of the left upper lobe secondary to Streptococcus mitis. Sensitivity pattern shows that it is susceptible to the currently used antibiotic ceftriaxone. We will continue this antibiotic presently. No other new events or issues. Patient does not have any signs of intolerance to medication. Plan: 1. Continue IV ceftriaxone at present dose. 2. Follow on pigtail drainage. 09/02/18 12:07 Subjective: Patient is sitting up in a chair in her hospital room. She denies any new complaint other than feeling full in her abdomen like she needs to have a bowel movement. Denies any breathing complaints. Denies rash. No diarrhea. Objective: Ceftriaxone # 2 Vital Signs Temp Pulse Resp BP Pulse Ox 36.9 C 84 18 113/56 L 94 09/02/18 11:48 09/02/18 11:48 09/02/18 11:48 09/02/18 11:48 09/02/18 11:48 Microbiology 08/31/18 14:10 Gram Stain - Final Lung - Aspirate 08/31/18 14:10 Mycobacterial Smear (CHRISTEL) - Final Lung - Aspirate Laboratory Results 09/01/18 03:42 09/01/18 03:42 09/01/18 09/02/18 09/03/18 05:59 05:59 05:59 Intake Total 759 210 5526 Output Total 595 1150 650 Balance 250 -975 350 - Physical Exam General Appearance: WD/WN, alert, no apparent distress, thin, non-toxic Respiratory: lungs clear, normal breath sounds, No respiratory distress Cardiac/Chest: regular rate, rhythm, No tachycardia Skin: normal color, warm/dry, No rash Neuro/Psych: alert, normal mood/affect, oriented x 3 ICD10 Worksheet Patient Problems: Problems Problem Status Onset Empyema, left Acute Adenocarcinoma of left lung Acute Chronic Disease Mgmt/Transitional Care Acute CAD, multiple vessel Chronic Cerebral vascular disease Chronic Chronic anticoagulation Chronic Rheumatoid arthritis Chronic S/P CABG x 3 Chronic
[2018-09-02] MEDS: ONDANSETRON 4 MG/2 ML VIAL IVP PRN (13:26)
[2018-09-02] MEDS: ATORVASTATIN CALCIUM 20 MG TAB PO SCH (20:56)
[2018-09-03] MEDS: HEPARIN 5,000 UNIT/0.5 ML INJ SC SCH ×3 (05:58→20:59)
[2018-09-03] MEDS: IBUPROFEN 200 MG TAB PO PRN (05:58)
[2018-09-03] MEDS: ISOSORBIDE DINITRATE 10 MG TAB PO SCH ×3 (05:59→16:15)
[2018-09-03] MEDS: TIOTROPIUM INHALER 18 MCG/DOSE 5 DOSE/MDI IH SCH (08:14)
[2018-09-03] MEDS: Mometasone/Formoterol [Dulera 200 Mcg/5 Mcg Inhaler] 2 PUFFS IH SCH ×2 (08:14→21:03)
--- NOTE | 2018-09-03 08:32 | SOAPPROG ---
SOAP Progress Note Assessment/Plan: h/o adenocarcinoma of left upper lobe s/p BATOOL lobectomy with post-operative left apical Streptococcus mitis empyema s/p drain placement by IR on 08/31 - Pt continues to be clinically well - d/w Dr. Tracey - plan will to continue IV Ceftriaxone when discharged - will order a PICC and plan with CM - Pt to be discharged with drain, continue BID flushing as per IR with home RN services to be planned - Adequate pain mgmt - Will continue to hold methotrexate for active infection - Will consider restarting Xarelto (AF thromboprophylaxis) as drainage now serous - PT/OT - DVT prophylaxis - SCDs/heparin SQ - DC planning possibly home Tuesday Subjective: Pt reports feeling well. Appetite has returned. Pain well-controlled. Denies SOB. Understands may need a PICC placed and will likely go home with drain. Objective: Vital Signs Temp Pulse Resp BP Pulse Ox 36.6 C 90 18 137/60 H 95 09/03/18 07:59 09/03/18 08:21 09/03/18 08:21 09/03/18 07:59 09/03/18 08:21 Microbiology 08/31/18 14:10 Gram Stain - Final Lung - Aspirate Laboratory Results 09/03/18 03:42 09/03/18 03:42 09/02/18 09/03/18 09/04/18 05:59 05:59 05:59 Intake Total 175 1450 Output Total 1150 1160 Balance -975 290 Physical Exam - Physical Exam General Appearance: WD/WN, alert, no apparent distress EENT: No scleral icterus (R), No scleral icterus (L) Neck: normal inspection Respiratory: No respiratory distress Cardiac/Chest: other (drain place with serous output, flushes well), No bradycardia, No tachycardia Abdomen: non-tender, soft, No distended Skin: normal color, warm/dry Extremities: No pedal edema ICD10 Worksheet Patient Problems: Problems Problem Status Onset Adenocarcinoma of left lung Acute Chronic Disease Mgmt/Transitional Care Acute Empyema, left Acute CAD, multiple vessel Chronic Cerebral vascular disease Chronic Chronic anticoagulation Chronic Rheumatoid arthritis Chronic S/P CABG x 3 Chronic
[2018-09-03] MEDS: ASPIRIN 81 MG CHEWABLE TAB PO SCH (08:49)
[2018-09-03] MEDS: AMIODARONE HCL 200 MG TAB PO SCH (08:49)
[2018-09-03] MEDS: DILTIAZEM CD 120 MG CAP PO SCH ×2 (08:50→18:48)
[2018-09-03] MEDS: FERROUS SULFATE 325 MG TAB PO SCH (08:51)
[2018-09-03] MEDS: SENNOSIDES/DOCUSATE SODIUM TAB PO SCH ×2 (08:51→19:30)
[2018-09-03] MEDS: PRESERVISION AREDS2 FORMULA EYE VIT 1 EACH PO SCH ×2 (08:51→19:30)
[2018-09-03] MEDS ORDERED: ALTEPLASE 2 MG VIAL IVP PRN (09:33)
--- NOTE | 2018-09-03 15:31 | PCMIDPN ---
Assessment/Plan: Assessment: Empyema of the left upper lobe secondary to Streptococcus mitis. Sensitivity pattern shows that it is susceptible to the currently used antibiotic ceftriaxone. We will continue this antibiotic presently. No other new events or issues. Will plan on using ceftriaxone intravenously to complete course of therapy. Expect 2 weeks in duration. Plan: 1. Continue IV ceftriaxone at present dose. 2. Follow on pigtail drainage. 3. Plan PICC line placement. Number for discharge in the next couple days. Subjective: Patient is sitting up in her chair. She feels fairly well. Pigtail catheter is still in place. No other new complaints. No fevers or chills. No rash. No diarrhea. Objective: Ceftriaxone # 3 Vital Signs Temp Pulse Resp BP Pulse Ox 36.6 C 90 18 137/60 H 95 09/03/18 07:59 09/03/18 08:21 09/03/18 08:21 09/03/18 07:59 09/03/18 08:21 Microbiology 08/31/18 14:10 Gram Stain - Final Lung - Aspirate Laboratory Results 09/03/18 03:42 09/03/18 03:42 09/02/18 09/03/18 09/04/18 05:59 05:59 05:59 Intake Total 175 1450 Output Total 1150 1160 Balance -975 290 - Physical Exam General Appearance: WD/WN, alert, no apparent distress, non-toxic Respiratory: lungs clear, normal breath sounds, No respiratory distress Cardiac/Chest: regular rate, rhythm, No tachycardia Skin: normal color, warm/dry, No rash Neuro/Psych: alert, normal mood/affect, oriented x 3 ICD10 Worksheet Patient Problems: Problems Problem Status Onset Adenocarcinoma of left lung Acute Chronic Disease [facility]/Transitional Care Acute Empyema, left Acute CAD, multiple vessel Chronic Cerebral vascular disease Chronic Chronic anticoagulation Chronic Rheumatoid arthritis Chronic S/P CABG x 3 Chronic
[2018-09-03] MEDS: MULTIVITAMINS 1 EACH TAB PO SCH (15:50)
--- NOTE | 2018-09-03 16:14 | ASMTCMCOM ---
CM Note CM Note Notes: RN notified CM that pt had questions and concerns about discharge. CM met with pt and she expressed she is overwhelmed with discharge plans and going home with all her "tubes" in her. CM provided education about follow-up nursing care. Pt is agreeable with follow-up provided by [facility]. CM discussed plans with pts daughter and she said for pt to be anxious is NOT normal for her. Pt reported concerns about her struggling with transportation to get to appointments and would appreciate information on transportation services prior to discharge. CM to follow. Plan: Home with [facility]. , needs transportation information. Date Signed: 09/03/2018 04:13 PM Electronically Signed By:ROSHAN Robison
[2018-09-03] MEDS: ATORVASTATIN CALCIUM 20 MG TAB PO SCH (19:30)
[2018-09-04] MEDS: HEPARIN 5,000 UNIT/0.5 ML INJ SC SCH (05:09)
--- NOTE | 2018-09-04 08:10 | SOAPPROG ---
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 Bryant to decide on drain duration tomorrow - Pain mgmt - Methotrexate and Xarelto restarted - PT/OT - DVT prophylaxis - SCDs/Xarelto - DC planning possibly home vs. SNF 09/04/18 09:44 Subjective: Pt denies pain/SOB. Worried about how she'll manage with her drain and PICC line if going home. Reassured pt that a solution will be worked out. Objective: Vital Signs Temp Pulse Resp BP Pulse Ox 36.5 C 88 14 126/66 H 98 09/04/18 07:58 09/04/18 07:58 09/04/18 07:58 09/04/18 07:58 09/04/18 07:58 Laboratory Results 09/03/18 03:42 09/03/18 03:42 09/03/18 09/04/18 09/05/18 05:59 05:59 05:59 Intake Total 1450 1280 Output Total 1160 40 20 Balance 290 1240 -20 Physical Exam - Physical Exam General Appearance: WD/WN, alert, no apparent distress EENT: No scleral icterus (R), No scleral icterus (L) Neck: normal inspection Respiratory: No respiratory distress Cardiac/Chest: No bradycardia, No tachycardia Abdomen: non-tender, soft, No distended Skin: normal color, warm/dry Extremities: No pedal edema Neuro/Psych: no motor/sensory deficits, alert, normal mood/affect, oriented x 3 ICD10 Worksheet Patient Problems: Problems Problem Status Onset Adenocarcinoma of left lung Acute Chronic Disease Mgmt/Transitional Care Acute Empyema, left Acute CAD, multiple vessel Chronic Cerebral vascular disease Chronic Chronic anticoagulation Chronic Rheumatoid arthritis Chronic S/P CABG x 3 Chronic
[2018-09-04] MEDS: ISOSORBIDE DINITRATE 10 MG TAB PO SCH ×2 (08:50→15:45)
[2018-09-04] MEDS: AMIODARONE HCL 200 MG TAB PO SCH (08:50)
[2018-09-04] MEDS: ASPIRIN 81 MG CHEWABLE TAB PO SCH (08:51)
[2018-09-04] MEDS: SENNOSIDES/DOCUSATE SODIUM TAB PO SCH ×2 (08:51→20:03)
[2018-09-04] MEDS: PRESERVISION AREDS2 FORMULA EYE VIT 1 EACH PO SCH ×2 (08:51→20:02)
[2018-09-04] MEDS: DILTIAZEM CD 120 MG CAP PO SCH ×2 (08:51→19:37)
[2018-09-04] MEDS: FERROUS SULFATE 325 MG TAB PO SCH (08:51)
--- NOTE | 2018-09-04 09:54 | PCMIDPN ---
Assessment/Plan: Assessment/Plan: * Left upper lobe empyema status post lung cancer resection due to Streptococcus mitis: Clinically improved post pigtail drain placement and with antibiotic therapy. Anticipate 2 weeks of IV ceftriaxone post drain placement. Side effects of ceftriaxone including allergic reactions, skin rash, drug fever, biliary sludging, and potential for changes in blood count/liver tests/ kidney test discussed with patient today. Anticipate weekly CBC and CMP on therapy. 09/04/18 09:51 Subjective: Patient feels significantly improved post empyema drainage. Complains of wheezing today. Appetite markedly improved. Objective: Vital Signs Temp Pulse Resp BP Pulse Ox 36.5 C 88 14 126/66 H 98 09/04/18 07:58 09/04/18 07:58 09/04/18 07:58 09/04/18 07:58 09/04/18 07:58 Laboratory Results 09/03/18 03:42 09/03/18 03:42 09/03/18 09/04/18 09/05/18 05:59 05:59 05:59 Intake Total 1450 1280 Output Total 1160 40 20 Balance 290 1240 -20 Ceftriaxone # 4 Empyema cultures with growth of Streptococcus mitis - Physical Exam General Appearance: alert, no apparent distress, thin, non-toxic EENT: No scleral icterus, No thrush, No conjunctival petechiae Respiratory: other (Decreased breath sounds left base) Cardiac/Chest: regular rate, rhythm, other (Purulent material in drain tubing), No systolic murmur - Line/s RUE PICC Lines: No drainage, No erythema ICD10 Worksheet Patient Problems: Problems Problem Status Onset Adenocarcinoma of left lung Acute Chronic Disease [facility]/Transitional Care Acute Empyema, left Acute CAD, multiple vessel Chronic Cerebral vascular disease Chronic Chronic anticoagulation Chronic Rheumatoid arthritis Chronic S/P CABG x 3 Chronic
--- NOTE | 2018-09-04 09:57 | PDIAF ---
- Diagnosis Diagnosis: Left upper lobe empyema Code Status: Full Code - Medication Management Detention Antibiotics: Ceftriaxone 2 g IV Q 24 hr Detention Antibiotic Stop Date: 09/14/18 Discharge Medications: electronically signed and located in the Home Medication List. PICC Care - Routine: Yes - Orders Services needed: Home Assisted Care Face to Face: I certify that this patient was under my care and that I had the required [id number] encounter meeting the encounter requirements on the discharge day. My findings support the fact that the patient is homebound as defined in Home Care Face to Face Continued: CMS Chapter 7 Medicare Benefits Manual 30.1.1 , The condition of the patient is such that there exists a normal inability to leave home and consequently, leaving home would require a considerable and taxing effort. Isolation Type: None - Labs/Radiology CBC w/diff Date: 09/11/18 CMP Date: 09/11/18 Call or Fax Lab and Imaging Results to: Dr. Ellis, - Follow Up Care Current Providers and Referrals: Patient,NotPresent [Unknown] - Kurtis Ellis MD [Medical Doctor] - 09/14/18 4:00 pm
[2018-09-04] MEDS: TIOTROPIUM INHALER 18 MCG/DOSE 5 DOSE/MDI IH SCH (10:33)
[2018-09-04] MEDS: Mometasone/Formoterol [Dulera 200 Mcg/5 Mcg Inhaler] 2 PUFFS IH SCH ×2 (10:34→21:15)
[2018-09-04] MEDS: IBUPROFEN 200 MG TAB PO PRN (13:35)
[2018-09-04] MEDS: MULTIVITAMINS 1 EACH TAB PO SCH (13:35)
--- NOTE | 2018-09-04 15:54 | ASMTCMCOM ---
SHELBY Note SHELBY Note Notes: I spent a lot of time with patient today, discussing options for her discharge. Per cardiothoracic surg, it is TBD whether she will be discharged with the pigtail catheter drain. This will determine d/c plan, so we had to weigh some options. I did find a SNF to her liking - [facility] - who will admit her with the drain if we can make sure that we send extra/adequate supplies. If the drain is removed, patient would like to go home. That options requires home care, which she already has through [facility], as well as infusion services (referral sent to [facility]) and possibly private duty care. Her catheter needs to be flushed twice daily, and Medicare only pays for one RN visit/day. I gave her a list of agencies she can call to inquire about rates for the second nurse visit. This was all discussed with her daughter Georgia, as well. If patient needs SNF and something falls through with [facility], [facility] [place] and [facility] have both accepted her as well. Case Management to follow. Date Signed: 09/04/2018 03:54 PM Electronically Signed By:Lo Witt RN
[2018-09-04] MEDS ORDERED: RIVAROXABAN 20 MG TAB PO SCH (18:00)
[2018-09-04] MEDS: ATORVASTATIN CALCIUM 20 MG TAB PO SCH (20:02)
[2018-09-05 07:40] VITALS: BP 169/84
[2018-09-05] MEDS: AMIODARONE HCL 200 MG TAB PO SCH (08:04)
[2018-09-05] MEDS: FERROUS SULFATE 325 MG TAB PO SCH (08:04)
[2018-09-05] MEDS: PRESERVISION AREDS2 FORMULA EYE VIT 1 EACH PO SCH (08:04)
[2018-09-05] MEDS: ASPIRIN 81 MG CHEWABLE TAB PO SCH (08:04)
[2018-09-05] MEDS: DILTIAZEM CD 120 MG CAP PO SCH (08:04)
[2018-09-05] MEDS: SENNOSIDES/DOCUSATE SODIUM TAB PO SCH (08:04)
[2018-09-05] MEDS: ISOSORBIDE DINITRATE 10 MG TAB PO SCH ×2 (08:04→14:28)
--- NOTE | 2018-09-05 08:34 | SOAPPROG ---
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 SNF depending on drain. Will d/w with Dr. Bryant today and plan for discharge. 09/05/18 08:35 Subjective: Doing well. Some discomfort with chest tube site & PICC Objective: Vital Signs Temp Pulse Resp BP Pulse Ox 36.6 C 84 15 169/84 H 97 09/05/18 07:37 09/05/18 07:37 09/05/18 07:37 09/05/18 07:37 09/05/18 07:37 Microbiology 08/31/18 14:10 Gram Stain - Final Lung - Aspirate Laboratory Results 09/03/18 03:42 09/05/18 04:00 09/04/18 09/05/18 09/06/18 05:59 05:59 05:59 Intake Total 1280 750 Output Total 40 295 Balance 1240 455 - Physical Exam General Appearance: WD/WN, alert, no apparent distress EENT: No scleral icterus (R), No scleral icterus (L) Neck: normal inspection Respiratory: No respiratory distress Cardiac/Chest: No bradycardia, No tachycardia Abdomen: non-tender, soft, No distended Skin: normal color, warm/dry Extremities: No pedal edema Neuro/Psych: no motor/sensory deficits, alert, normal mood/affect, oriented x 3 ICD10 Worksheet Patient Problems: Problems Problem Status Onset Adenocarcinoma of left lung Acute Chronic Disease Mgmt/Transitional Care Acute Empyema, left Acute CAD, multiple vessel Chronic Cerebral vascular disease Chronic Chronic anticoagulation Chronic Rheumatoid arthritis Chronic S/P CABG x 3 Chronic
[2018-09-05] MEDS: TIOTROPIUM INHALER 18 MCG/DOSE 5 DOSE/MDI IH SCH (08:46)
[2018-09-05] MEDS: Mometasone/Formoterol [Dulera 200 Mcg/5 Mcg Inhaler] 2 PUFFS IH SCH (08:46)
--- NOTE | 2018-09-05 10:04 | PCMIDPN ---
Assessment/Plan: Streptococcus Mitis left upper lobe empyema s/p drainage. S/p resection BATOOL for adenocarcinoma 07/26/18 --plan 14 days of IV ceftriaxone, interagency and f/u already established --discussed possible need for ongoing antibiotic therapy with PO antibiotics at the end of IV therapy --awaiting CT surg assessment if drain need to remain in place micro 08/31 pleural aspirate: Strep Mitis; Ceftriaxone CHRISTEL less than 0.0625 08/31 blood cx (2) NGTD Subjective: Patient feels much much better as compared to admission, states improvement happened immediately following drainage. No diarrhea, rash, oral pain. Appetite back to normal now! Objective: Vital Signs Temp Pulse Resp BP Pulse Ox 36.6 C 91 18 169/84 H 96 09/05/18 07:37 09/05/18 08:53 09/05/18 08:53 09/05/18 07:37 09/05/18 08:53 Microbiology 08/31/18 14:10 Gram Stain - Final Lung - Aspirate Laboratory Results 09/03/18 03:42 09/05/18 04:00 09/04/18 09/05/18 09/06/18 05:59 05:59 05:59 Intake Total 1280 750 Output Total 40 295 Balance 1240 455 - Physical Exam General Appearance: alert, no apparent distress EENT: No thrush Respiratory: crackles (L mid lung rodriguez), wheezing (occasional), other (Upper anterior L drain in place with bulb containing serosang fluid), No accessory muscle use Cardiac/Chest: regular rate, rhythm, systolic murmur Extremities: No pedal edema Skin: normal color, warm/dry, No rash Neuro/Psych: alert, normal mood/affect, oriented x 3, other (T[place]K) - Line/s RUE PICC Lines: No drainage, No erythema - Time Spent With Patient Time Spent with Patient: greater than 35 minutes Time Spent with Patient: Greater than 35 minutes spent on this patients care, greater than 50% of time spent counseling, educating, and coordinating care regarding the above mentioned plan. ICD10 Worksheet Patient Problems: Problems Problem Status Onset Adenocarcinoma of left lung Acute Chronic Disease Mgmt/Transitional Care Acute Empyema, left Acute CAD, multiple vessel Chronic Cerebral vascular disease Chronic Chronic anticoagulation Chronic Rheumatoid arthritis Chronic S/P CABG x 3 Chronic
--- NOTE | 2018-09-05 12:20 | PDDCSUM ---
Discharge Summary Discharge Summary: DATE OF ADMISSION: 08/31/2018 DATE OF DISCHARGE: 09/05/2018 DISPOSITION: [facility] ACTIVITY: Reviewed activity restrictions, chest tube care, PICC care, and problems to call [facility]. ADMISSION DIAGNOSES: 1. Adenocarcinoma left upper lobe s/p lobectomy with post-operative left apical empyema 2. CAD s/p CABG 2015 3. 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 Atrial fibrillation on Xarelto 5. COPD on RELL 6. History of PE 7. Anemia of chronic disease DISCHARGE DIAGNOSES: As above plus, 1. Left apical Streptococcus mitis empyema PROCEDURE PERFORMED: (Eduard) 08/31/18 CT guided BATOOL drain placement (Salima) 09/03/18 PICC, right HISTORY OF PRESENT ILLNESS: This is a pleasant 78F who underwent left thoracotomy upper lobectomy with lymphadenectomy (adenocarcinoma, pT1bN1) on 07/26/[address] Bryant who presented with a 3-day history of fever, fatigue, and chest tightness. Her postoperative course was complicated by persistent air leak requiring prolonged chest tube which was removed on 08/22/18. She also underwent bedside talc pleurodesis during her hospitalization. CXR on 08/29 demonstrates loculated apical empyema. WBC with leukocytosis at 14k. She was hemodynamically stable and afebrile. HOSPITAL COURSE: Starr presented to clinic with fever, fatigue, and chest tightness. CXR demonstrated apical BATOOL empyema. The same day she was taken to the IR with successful placement of a pigtail catheter. This evacuated 90cc of purulent fluid. This grew Streptococcus Mitis. She was seen by our Infectious Diseases associates and was started on IV Ceftriaxone. Therapy is to continue until . A PICC line was placed for antibiotic therapy. Her drainage continued to decrease. She received daily BID sterile saline flushes into her chest tube. She remained hemodynamically stable and afebrile throughout her hospital stay. PERTINENT DISCHARGE CLINICAL INFORMATION: HR 91 SBP 169/84 SpO2 96% 2L Temp 36.6 WBC 7.92 Hgb 8.9 Hct 29.3 Plt 394 Na 136 K 4.5 Cr 0.6 Gen: NAD HEENT: MMM Resp: unlabored, 1 L nasal cannula oxygen Cardiac: s1s2, no m/r/g Thoracotomy incision c/d/i PICC & chest tube site are clean CONSULTANTS: Infectious Disease (Drs. Carbone, Taryn, Rhonda, Alexy) Interventional Radiology (Dr. Chapa) ALLERGIES/SENSITIVITIES: NKDA MEDICATIONS ON ADMISSION: Methotrexate Sodium Multivitamins/Herbal Supplements Mometasone/Formoterol Xarelto Aspirin Amiodarone HCl Isosorbide Dinitrate Atorvastatin Calcium Diltiazem Oxycodone IR Ferrous Sulfate Tylenol Tiotropium Inhaler DISCHARGE MEDICATIONS: STOP these medications: Oxycodone IR CONTINUE these medications: Methotrexate Sodium Multivitamins/Herbal Supplements Mometasone/Formoterol Xarelto Aspirin Amiodarone HCl Isosorbide Dinitrate Atorvastatin Calcium Diltiazem Ferrous Sulfate Tylenol Tiotropium Inhaler NEW medications: Ceftriaxone 2 gm IV daily Alteplase 2 mg IV PRN for PICC Austin 5/325 mg 1 tab PO q4 hr PRN Ibuprofen 400 mg PO q6 hr PRN Tramadol 50-100 mg PO q6 hr PRN FOLLOW UP APPOINTMENTS: 1. CTS Dr. Bryant 09/[address] Ellis 09/14 11AM FOLLOW UP TESTING: CXR prior to surgical appointment CBC, BMP per ID
--- NOTE | 2018-09-05 12:58 | PDIAF ---
- Diagnosis Diagnosis: Left upper lobe empyema Code Status: Full Code - Medication Management [employer] Antibiotics: Ceftriaxone 2 g IV Q 24 hr Usp Antibiotic Stop Date: 09/14/18 Discharge Medications: electronically signed and located in the Home Medication List. PICC Care - Routine: Yes - Orders Services needed: Home Care, Registered Nurse, Certified Industrial Sewer Home Care Face to Face: I certify that this patient was under my care and that I had the required [id number] encounter meeting the encounter requirements on the discharge day. My findings support the fact that the patient is homebound as defined in Home Care Face to Face Continued: CMS Chapter 7 Medicare Benefits Manual 30.1.1 , The condition of the patient is such that there exists a normal inability to leave home and consequently, leaving home would require a considerable and taxing effort. Isolation Type: None Diet Recommendation: no restrictions on diet Diet Texture: Regular Texture Diet, Thin Liquids, Meds Whole w/Liquids Hester: Not applicable Wound Care Instructions: see additional instructions Activity/Weight Bearing Restrictions: see additional instructions Additional Instructions: THORACIC SURGERY DISCHARGE INSTRUCTIONS Activity Restrictions: No driving for 2 weeks or until cleared by surgery. You may shower. No baths. Chest Tube/Wound Care/PICC Care: Cleanse chest tube site once daily with soap and water. Chest tube site may be open to air. Apply chest tube dressing PRN drainage. Avoid underwater immersion (pool, hot tub, bath). Avoid creams or ointments. Perform twice daily 20cc sterile saline flushes. Sterile dressing changes every 7 days with sterile PICC site care. Flush PICC line per rehab protocol. Please log daily vital signs and bring to your next clinic visit: Temperature Resting heart rate Blood pressure Laboratory results (if taken) When to Call [facility] Febrile > 100.4*F Worsening SOB Please obtain a chest xray prior to surgical appointment. Use requisition form attached to appointment card. Chest x-rays don't require an appointment. Go to the Emergency Room entrance at the [facility] location. Sign in at the computer kiosk in the entryway. You will be given a number & may sit in the waiting area until called. You will be registered and directed to Imaging on the 1st floor. This process can take up to an hour. Please allow at least 30 min before your appt to get x-ray taken. Additional Information: You may use [id number] medications for iron supplementation, bowel function or pain. You may use Tylenolor ibuprofen for mild pain. Use tramadol or norco for breakthrough pain. - Labs/Radiology CBC w/diff Date: 09/11/18 CMP Date: 09/11/18 Imaging Orders: CXR prior to Dr. Bryant appt Call or Fax Lab and Imaging Results to: Dr. Ellis, ; Dr. Bryant's office attn:Edna Szymanski RN [phone] - Follow Up Care Current Providers and Referrals: Kurtis Ellis MD [Medical Doctor] - 09/14/18 4:00 pm Manish Bryant DO [Doctor of Osteopathy] - 09/14/18 10:00 am
--- NOTE | 2018-09-05 13:49 | ASMTLACE ---
LACE Length of stay for Answers: 4-6 days current admission Acuity / Level of Answers: Yes Care: Did the patient have an inpatient admission? Comorbidities - select Answers: Coronary Artery Disease all that apply Opioid dependence / Chronic pain Previous myocardial infarction Other Notes: HTN; PE; DVT # of Emergency department Answers: 0 visits in the last 6 months Score: 15 Date Signed: 09/05/2018 01:48 PM Electronically Signed By:ROSHAN Santos
--- NOTE | 2018-09-05 13:50 | ASMTDCNOTE ---
Case Management Discharge Discharge Order Complete? Answers: Yes Patient to Obtain Answers: Other Notes: [facility] Medications Transportation Arranged Answers: Other Transport will Pick (Date 09/05/2018 02:00 PM & Time) EMTALA Complete Answers: No Case Management Transport Answers: No Form Complete Faxed Final Orders Answers: Yes Agency/Facility Transfer Answers: Yes Report Printed & Faxed to Receiving Agency Family Notified Answers: Yes Discharge Comments Notes: Pts case discussed w/ Dr. Bryant and Ghassan Ma. Pt is being d/c'd today to [facility]. Pts pigtail drains will remain. CM called pts daughter and informed her of the d/c. CM available for changes. Plan: [facility] Date Signed: 09/05/2018 01:50 PM Electronically Signed By:ROSHAN Santos
--- NOTE | 2018-09-05 13:52 | ASDISCHSUM ---
Discharge Information Plan Status:SNF Medically Cleared to Leave:09/04/2018 Discharge Date:09/04/2018 CM D/C Disposition: ADT D/C [facility] Projected Discharge Date:09/05/2018 11:00 AM Transportation at D/C: Discharge Delay Reason: Follow-Up Date:09/05/2018 11:00 AM Discharge Slot: Final Diagnosis: Placement Information Referral Type:*Home Health Care Services Referral ID:[id number] Provider Name: Address 1: Phone Number: Address 2: Fax Number: City: Selection Factors: State: Referral Type:*Residential/SNF Referral ID:[id number] Provider Name:[facility] Address 1:[address] [place] [address] Address 2: City:[place] Selection Factors: State:[place] Referral Type:Home Infusion Referral ID:[id number] Provider Name: Address 1: Phone Number: Address 2: Fax Number: City: Selection Factors: State: Patient Contact Information Contact Name:CHICHO Relationship:Daughter Address: City:[place] Alternate Phone: [facility]/Zip Code:[place] [address] Email: Financial Information Financial Class:Medicare Primary Plan Desc:MEDICARE INPATIENT Primary Plan Number:[id number] Secondary Plan Desc:MEDICA Secondary Plan Number:[id number] Assessment Information LACE LACE Length of stay for Answers: 4-6 days current admission Acuity / Level of Answers: Yes Care: Did the patient have an inpatient admission? Comorbidities - select Answers: Coronary Artery Disease all that apply Opioid dependence / Chronic pain Previous myocardial infarction Other Notes: HTN; PE; DVT # of Emergency department Answers: 0 visits in the last 6 months Score: 15 Date Signed: 09/05/2018 01:48 PM Electronically Signed By:ROSHAN Santos [facility] Progress Note CM Note CM Note Notes: 09/01/2018 Case Management Note Pt admitted for empyema. Chest tube placed. Met w/pt to discuss d/c needs. Several admissions since July. Pt prefers to return home and resume [facility] Care. Faxed updates to [facility]. Pt daughter Ananth [phone] lives nearby and assists with grocery shopping, meal prep plus laundry. Pt lives in a town home that takes care of all lawncare needs and snow removal. Awaiting PT OT johnnie. Case Management d/c poc: anticipating home resuming [facility] Case Management to follow. Date Signed: 09/01/2018 04:28 PM Electronically Signed By:Socorro Land RN [facility] [place] Progress Note CM Note CM Note Notes: RN notified CM that pt had questions and concerns about discharge. CM met with pt and she expressed she is overwhelmed with discharge plans and going home with all her "tubes" in her. CM provided education about follow-up nursing care. Pt is agreeable with follow-up provided by [facility]. CM discussed plans with pts daughter and she said for pt to be anxious is NOT normal for her. Pt reported concerns about her struggling with transportation to get to appointments and would appreciate information on transportation services prior to discharge. CM to follow. Plan: Home with [facility]. , needs transportation information. Date Signed: 09/03/2018 04:13 PM Electronically Signed By:ROSHAN Robison [facility] CM Progress Note CM Note CM Note Notes: I spent a lot of time with patient today, discussing options for her discharge. Per cardiothoracic surg, it is TBD whether she will be discharged with the pigtail catheter drain. This will determine d/c plan, so we had to weigh some options. I did find a SNF to her liking - [facility] - who will admit her with the drain if we can make sure that we send extra/adequate supplies. If the drain is removed, patient would like to go home. That options requires home care, which she already has through [facility], as well as infusion services (referral sent to [facility]) and possibly private duty care. Her catheter needs to be flushed twice daily, and Medicare only pays for one RN visit/day. I gave her a list of agencies she can call to inquire about rates for the second nurse visit. This was all discussed with her daughter Georgia, as well. If patient needs SNF and something falls through with [facility], the [facility] [place] and [facility] have both accepted her as well. Case Management to follow. Date Signed: 09/04/2018 03:54 PM Electronically Signed By:Lo Witt RN Case Management Discharge Plan Note Case Management Discharge Discharge Order Complete? Answers: Yes Patient to Obtain Answers: Other Notes: [facility] Medications Transportation Arranged Answers: Other Transport will Pick (Date 09/05/2018 02:00 PM & Time) CARLOS Complete Answers: No Case Management Transport Answers: No Form Complete Faxed Final Orders Answers: Yes Agency/Facility Transfer Answers: Yes Report Printed & Faxed to Receiving Agency Family Notified Answers: Yes Discharge Comments Notes: Pts case discussed w/ Dr. Bryant and Ghassan Ma. Pt is being d/c'd today to [facility]. Pts pigtail drains will remain. CM called pts daughter and informed her of the d/c. CM available for changes. Plan: [facility] SNF Date Signed: 09/05/2018 01:50 PM Electronically Signed By:ROSHAN Santos Intervention Information Intervention Type:*Incorrect Registration Date of Service:08/31/2018 03:28 PM Patient Type:Inpatient Staff Member:Mikayla Eller Hours: Discipline: Severity: Comment:
[2018-09-05] MEDS: MULTIVITAMINS 1 EACH TAB PO SCH (14:28)
[2018-09-06] MEDS ORDERED: METHOTREXATE 2.5 MG TAB PO SCH (09:00)
== END 2018-09-05 14:36 | DRG 862 ==
LOC: FIMAGING 08:22 → F2W 12:08 → OBSVTOIN 14:50
PROVIDERS: ADMIT Thoracic Surgery (Cardiothoracic Vascular Surgery); ATTEND Thoracic Surgery (Cardiothoracic Vascular Surgery)
PROC: 0W9B30Z Drainage of Left Pleural Cavity with Drainage Device, Percutaneous Approach (ICD-10-PCS; principal; 2018-08-31 14:08)
PROC: 02H633Z Insertion of Infusion Device into Right Atrium, Percutaneous Approach (ICD-10-PCS; 2018-09-03)
DX: T81.43XA Infection following a procedure, organ and space surgical site, initial encounter (principal); J86.9 Pyothorax without fistula; B95.4 Other streptococcus as the cause of diseases classified elsewhere; Z85.118 Personal history of other malignant neoplasm of bronchus and lung; Z90.2 Acquired absence of lung [part of]; M06.9 Rheumatoid arthritis, unspecified; I48.91 Unspecified atrial fibrillation; Z79.01 Long term (current) use of anticoagulants; J44.9 Chronic obstructive pulmonary disease, unspecified; Z87.891 Personal history of nicotine dependence; Z86.711 Personal history of pulmonary embolism; D63.8 Anemia in other chronic diseases classified elsewhere; I25.10 Atherosclerotic heart disease of native coronary artery without angina pectoris; Z95.1 Presence of aortocoronary bypass graft; I25.2 Old myocardial infarction; I10 Essential (primary) hypertension
CPT/HCPCS: 97116-GP; 97161-GP; 97165-GO; 97530-GO; 97535-GO; C1751; J0692; J0696; J1644; J2250; J2310; J2405; J3010

== ENCOUNTER → 2018-09-14 | Outpatient (CLI) | payer OTHER | LOC: FIMAGING 09:08 | PROVIDERS: ATTEND Thoracic Surgery (Cardiothoracic Vascular Surgery) | DX: Z09 Encounter for follow-up examination after completed treatment for conditions other than malignant neoplasm (principal); R91.8 Other nonspecific abnormal finding of lung field; Z95.9 Presence of cardiac and vascular implant and graft, unspecified ==

== ENCOUNTER → 2018-09-18 | Outpatient (CLI) | payer OTHER | LOC: CIMAGING 12:59 | PROVIDERS: ATTEND Thoracic Surgery (Cardiothoracic Vascular Surgery) | DX: J86.9 Pyothorax without fistula (principal); R91.1 Solitary pulmonary nodule; I25.10 Atherosclerotic heart disease of native coronary artery without angina pectoris; I70.0 Atherosclerosis of aorta; Z95.9 Presence of cardiac and vascular implant and graft, unspecified; Z90.2 Acquired absence of lung [part of] | CPT/HCPCS: 71250-PO ==

== ENCOUNTER → 2018-10-02 | Outpatient (CLI) | payer OTHER | LOC: CIMAGING 13:46 | PROVIDERS: ATTEND Thoracic Surgery (Cardiothoracic Vascular Surgery) | DX: J86.9 Pyothorax without fistula (principal); J43.9 Emphysema, unspecified; J90 Pleural effusion, not elsewhere classified; R91.8 Other nonspecific abnormal finding of lung field | CPT/HCPCS: 71250-PO ==

== ENCOUNTER → 2018-10-26 | Outpatient (CLI) | payer OTHER | LOC: CIMAGING 11:03 | PROVIDERS: ATTEND Thoracic Surgery (Cardiothoracic Vascular Surgery) | DX: R91.8 Other nonspecific abnormal finding of lung field (principal); R91.1 Solitary pulmonary nodule; Z90.2 Acquired absence of lung [part of] | CPT/HCPCS: 71250-PO ==

== ENCOUNTER → 2018-11-29 | Outpatient (CLI) | payer OTHER | LOC: SUPIMAGING 10:57 | PROVIDERS: ATTEND Family Medicine | DX: M16.0 Bilateral primary osteoarthritis of hip (principal); I70.8 Atherosclerosis of other arteries; K59.00 Constipation, unspecified; Z96.641 Presence of right artificial hip joint | CPT/HCPCS: 73502-PN ==

== ENCOUNTER → 2018-12-01 | Outpatient (CLI) | payer OTHER | LOC: FLAB 10:38 | PROVIDERS: ATTEND Physician Assistant | DX: J90 Pleural effusion, not elsewhere classified (principal); R91.1 Solitary pulmonary nodule ==